=== PATIENT | female | born 1980 | race Caucasian/White ===

== ENCOUNTER 2022-04-28 07:58 | Outpatient (CLI) | payer BC, SELFPAY ==
--- NOTE | 2022-04-28 08:15 | CRLHL7_ITS ---
For Patients: As a result of the Century Cures Act, medical imaging exams and procedure reports are released immediately into your electronic medical record. You may view this report before your referring provider. If you have questions, please contact your health care provider. BILATERAL SCREENING MAMMOGRAM WITH COMPUTER-AIDED DETECTION TECHNIQUE: CC and MLO views were obtained. These mammographic images have been obtained using full-field digital technique. These mammographic images were interpreted with the benefit of computer-aided detection. COMPARISON FILM: Baseline. FINDINGS: The breasts are heterogeneously dense, which may obscure small masses IMPRESSION: There is no radiographic evidence for malignancy. ASSESSMENT: BI-RADS Category 1: Negative RECOMMENDATION: Routine screening mammogram in 1 year. A lay language report of this examination will be provided to the patient. Pedro Luis Rodriguez M.D. Diagnostic Radiologist [email or web address] BAIRON/Dictated by: Pedro Luis Rodriguez MD @ 04/28/2022 10:11:00 AM (Electronically Signed)
== END 2022-04-28 07:59 | disposition home or self-care (01) ==
LOC: MAMMO 08:03
PROVIDERS: PCP Family Medicine; Visit Provider Family Medicine
DX: Z12.31 Encounter for screening mammogram for malignant neoplasm of breast (principal); R92.2 Inconclusive mammogram
CPT/HCPCS: 77063; 77067

== ENCOUNTER 2022-10-31 10:45 | Outpatient (CLI) | payer BC, SELFPAY | END 2022-10-31 10:46 | disposition home or self-care (01) | LOC: NFLDREF 10:45 | PROVIDERS: PCP Family Medicine; Visit Provider Obstetrics & Gynecology | DX: N39.0 Urinary tract infection, site not specified (principal) | CPT/HCPCS: 87086; 87186 ==

== ENCOUNTER 2023-01-30 08:00 | Outpatient (RCR) | payer BC, SELFPAY | END 2023-05-30 23:59 | disposition home or self-care (01) | PROVIDERS: PCP Family Medicine; Visit Provider Obstetrics & Gynecology | DX: R10.2 Pelvic and perineal pain (principal); Z98.890 Other specified postprocedural states; M62.838 Other muscle spasm; R39.14 Feeling of incomplete bladder emptying; N89.8 Other specified noninflammatory disorders of vagina; R27.8 Other lack of coordination; Z51.89 Encounter for other specified aftercare | CPT/HCPCS: 97110; 97112; 97140; 97162; 97535 ==

== ENCOUNTER 2023-09-27 15:59 | Outpatient (CLI) | payer BC, SELFPAY | END 2023-09-27 16:00 | disposition home or self-care (01) | PROVIDERS: PCP Family Medicine; Visit Provider Family Medicine | DX: R20.2 Paresthesia of skin (principal); Z13.220 Encounter for screening for lipoid disorders; Z13.21 Encounter for screening for nutritional disorder; Z13.228 Encounter for screening for other metabolic disorders; Z13.29 Encounter for screening for other suspected endocrine disorder | CPT/HCPCS: 80053; 80061; 82306; 82607; 84443 ==

== ENCOUNTER 2023-11-02 16:45 | Outpatient (RCR) | payer BC, SELFPAY | END 2023-11-07 17:15 | disposition home or self-care (01) | PROVIDERS: PCP Family Medicine; Visit Provider Family Medicine | DX: R20.2 Paresthesia of skin (principal); G56.00 Carpal tunnel syndrome, unspecified upper limb; Z51.89 Encounter for other specified aftercare | CPT/HCPCS: 97033; 97035; 97110; 97140; 97162; 97166 ==

== ENCOUNTER 2023-11-16 06:06 | Day surgery (SDC) | payer BC, SELFPAY ==
[2023-11-16] VITALS (11 sets, daily range): BP systolic 104–137; BP diastolic 51–78; PULSE 70–95; RESP 12–16; TEMP 36.2–36.7; O2SAT 99–100; BMI 21.6
--- OUTSIDE RECORDS SUMMARY | 2023-11-16 06:08 | XMS_ITS | Clinical Summary ---
Author Name Unknown Organization [place] Address [facility]0 [facility] [place] [address] Care Team Providers Care Chief Physical Therapist Name Role Phone Unavailable Primary Care Provider Unavailabl e Allergies Active Allergy Reactions Criticality Noted Date Comments Penicillins Rash Low 09/16/2014 Medications Medication Sig Dispensed Refills Start Date End Date Status Fexofenadine HCl (STEPHY PO) Active Fluticasone Propionate (FLONASE NA) Active ondansetron (ZOFRAN) 4 MG tabletIndications:N ausea TAKE ONE TABLET BY MOUTH EVERY 8 HOURS NEEDED FOR NAUSEA 20 tablet 3 06/14/2018 Active SPRINTEC 28 0.25-35 MG-MCG tablet 08/02/2018 Active fluconazole (DIFLUCAN) 150 MG tabletIndications:Y east infection of the vagina Take 1 tablet today, repeat in 7 days if needed. 2 tablet 06/03/2019 Active Additional Information Patient not taking.Reported on 10/21/2022 SUMAtriptan (IMITREX) 100 MG tablet TAKE ONE TABLET BY MOUTH ONCE A DAY NEEDED FOR MIGRAINE HEADACHES 10/16/2022 Active metoprolol succinate ER (TOPROL XL) 25 MG 24 hr tablet Take 1 tablet by mouth daily at 2 pm 10/16/2022 Active Active Problems Problem Noted Date Diagnosed Date Anxiety 02/07/2018 Liver hemangioma 02/09/2017 Overview: Noted on CT 02/2017, due for follow up US in 6 months (08/2017) H/O tubal ligation 02/07/2017 Atypical squamous cells of u ndetermined significance on cytologic smear of cervix (ASC-US) 01/03/2017 Overview: Overview: 04/02/2015 - had colp in . repeat pap and colp per provider.; 03/08/2016; 08/2016 [place] (ROBINSON 1) PLAN: Cotest in 1year (DUE: 08/2017) CARDIOVASCULAR SCREENING; LDL GOAL LESS THAN 160 03/24/2015 Resolved Problems Problem Noted Date Diagnosed Date Resolved Date Hip pain, left 03/02/2017 05/16/2017 Immunizations Name Administration Dates Next Due Influenza Vaccine >6 months,quad, PF 04/07/2017, 03/30/2016 Family History Medical History Relation Comments Cirrhosis Father Cancer Maternal Grandfather Diabetes Maternal Grandmother Family History Negative Mother Emphysema Paternal Grandfather Peptic Ulcer Disease Paternal Grandfather Cerebrovascular Disease Paternal Grandmother Relation Status Comments Father Maternal Grandfather Maternal Grandmother Mother Paternal Grandfather Paternal Grandmother Social History Tobacco Use Types Packs/Day Years Used Date Smoking Tobacco: Former Cigarettes Smokeless Tobacco: Never Tobacco Cessation:Counseling Given: Not Answered Alcohol Use Standard Drinks/Week Comments Yes 0 (1 standard drink = 0.6 oz pur e alcohol) Occ. Rare PHQ-2 Answer Date Recorded PHQ-2 Score 0 09/18/2018 Adolescent Education Answer Date Record ed Getting School Help Needed Not on file 03/31 Sex and Gender Information Value Date Recorded Sex Assigned at Not on file Gender Identity Not on file Sexual Orientation Not on file Last Filed Vital Signs Vital Sign Reading Time Taken Comments Blood Pressure 112/75 10/21/2022 12:03 PM CDT Pulse 91 10/21/2022 12:03 PM CDT Temperature 36.8 ??C (98.3 ??F) 10/21/2022 1 2:03 PM CDT Respiratory Rate 16 03/21/2021 3:49 PM CDT Oxygen Saturation 100% 10/21/2022 12: 03 PM CDT Inhaled Oxygen Concentration - - Weight 64.3 kg (141 lb 11.2 oz) 03/21/2021 3:49 PM CDT Height 165.1 cm (5' 5) 09/18/2018 9:26 AM CDT Body Mass Index 23.58 09/18/2018 9:26 AM CDT Plan of Treatment Health Maintenance Due Date Last Done Comments ADVANCE CARE PLANNING 1981 ANNUAL REVIEW OF HM ORDERS 1981 MAMMO SCREENING 1981 HIV SCREENING 1996 HEPATITIS C SCREENING 1999 HEPATITIS B IMMUNIZATION (1 of 3 - 19+ 3-dose series) 2000 YEARLY PREVENTIVE VISIT 09/19/2019 09/18/2018 HPV TEST 09/28/2020 09/28/2017, 09/08, 09/28/2017, Additional history exists PAP 09/28/2020 09/28/2017, 09/08, 09/28/2017, Additional history exists COVID-19 Vaccine ( season) 2023 05/06/2022, 10/09/2020, 09/11/2020 PHQ-2 (once per calendar year) 2023 09/18/2018, 08/21/2018, 02/07/2018, Additional history exists LIPID 09/19/2023 09/18/2018 INFLUENZA VACCINE (Season Ended) 2024 05/06/2022, 04/30/2021, 05/07/2020, Additional history exists GLUCOSE 03/21/2024 03/21/2021, 09/07, 02/07/2017 DTAP/TDAP/TD IMMUNIZATION (2 - Td or Tdap) 12/16/2025 12/17/2015 HPV IMMUNIZATION Aged Out No longer e ligible based on patient's age to complete this topic IPV IMMUNIZATION Aged Out No longer e ligible based on patient's age to complete this topic MENINGITIS IMMUNIZATION Aged Out No l onger eligible based on patient's age to complete this topic Pneumococcal Vaccine: Pediatrics (0 to 5 Years) and At-Risk Patients (6 to 64 Years) Aged Out No longer eligible based on patient's age to complete this topic RSV MONOCLONAL ANTIBODY Aged Out No l onger eligible based on patient's age to complete this topic Procedures Procedure Name Priority Date/Time Associated Diagnosis Comments BASIC METABOLIC PANEL ANABEL 03/21/2021 4:20 PM CDT RLQ abdominal pain LIPID REFLEX TO DIRECT LDL PANEL Routine 09/18/2018 9:54 AM CDT Routine [facility] ABSTRACT PAP (HIM EXTERNAL RESULT) Routine 09/28/2017 ABSTRACT HPV (HIM EXTERNAL RESULT) Routine 09/28/2017 from Last 3 Months or Most Recently Relevant to Health Maintenance Results * Basic metabolic panel (Ca, Cl, CO2, Creat, Gluc, K, Na, BUN) (03/21/2021 4:20 PM CDT) Sodium 134 133 - 144 mmol/L 03/22/2021 9:12 PM CDT [facility] Potassium 4.4 3.4 - 5.3 mmol/L 03/22/2021 9:12 PM CDT [facility] Chloride 101 94 - 109 mmol/L 03/22/2021 9:12 PM CDT [facility] Carbon Dioxide (CO2) 29 20 - 32 mmol/L 03/22/2021 9:12 PM CDT [facility] Anion Gap 4 3 - 14 mmol/L 03/22/2021 9:12 PM CDT [facility] Urea Nitrogen 18 7 - 30 mg/dL 03/22/2021 9:12 PM CDT [facility] Creatinine 0.60 0.52 - 1.04 mg/dL 03/22/2021 9:12 PM CDT [facility] Calcium 9.7 8.5 - 10.1 mg/dL 03/22/2021 9:12 PM CDT [facility] Glucose 88 70 - 99 mg/dL 03/22/2021 9:12 PM CDT [facility] GFR Estimate >90 >60 mL/min/1.7 3m2 03/22/2021 9:12 PM CDT [facility] Comment:As of January 17, 2021, eGFR is calculated by the CKD-EPI creatinine equation, without race adjustment. eGFR can be influenced by muscle mass, exercise, and diet. The reported eGFR is an estimation only and is only applicable if the renal function is stable. Blood STRUCTURE OF RIGHT UPPER LIMB / Unknown Venipuncture / Unknown 03/21/2021 4:20 PM CDT 03/21/2021 4:21 PM CDT Rodriguez Aparicio PA-C LAB - BLOOD ORDERABL ES [facility] [address] Lab (no room number, 1st floor of clinic) [place] [address], [facility] [phone] * (ABNORMAL) Lipid panel reflex to direct LDL Fasting (09/18/2018 9:54 AM CDT) Cholesterol 188 <200 mg/dL 09/18/2018 3:31 PM CDT [facility] Triglycerides 174(H) <150 mg/dL 09/18/2018 3:31 PM CDT [facility] Comment: Borderline high: ??150-199 mg/dl High: ? 200-499 mg/dl Very high: ? >499 mg/dl Fasting specimen HDL Cholesterol 48(L) >49 mg/dL 9 3:31 PM CDT [facility] LDL Cholesterol Calculated 105(H) <100 mg/dL 09/18/2018 3:31 PM CDT [facility] Comment: Above desirable: ??100-129 mg/dl Borderline High: ??130-159 mg/dL High: ? 160-189 mg/dL Very high: ? >189 mg/dl Non HDL Cholesterol 140(H) <130 mg/dL 09/18/2018 3:31 PM CDT [facility] Comment: Above Desirable: ??130-159 mg/dl Borderline high: ??160-189 mg/dl High: ? 190-219 mg/dl Very high: ? >219 mg/dl Blood specimen (specimen) 09/18/2018 9:54 AM CDT 09/18/2018 9:55 AM CDT Bianka Yanes APRN JOGGLE PRESS OPERATOR LAB - BLOOD ORDERABLES [facility] [address] [address], [facility] [phone] * ABSTRACT HPV-NO CHARGE (09/28/2017) HPV Abstract See Scanned Document [facility] 09/28/2017 Narrative [facility] LAB-CENTRAL LABORATORY - 09/28/2017 RESULTS FOUND IN CARE EVERYWHERE Amelia Yadav CMA ??P Abstract Quality Initiatives Please abstract the following data from this visit with this patient into the appropriate field in Epic: Pap smear done on this date: 09/28/2017 (approximately), by this group: [place], results were normal. Provider Outside LAB - [facility] EXTERNAL R ESULT Performing Organization Address [facility] Co de Phone Number [facility] LAB-CENTRAL LABORATORY [address] * ABSTRACT PAP-NO CHARGE (09/28/2017) PAP-ABSTRACT See Scanned Document [facility]-C[facility]AL [facility] 09/28/2017 Narrative [facility] - 09/28/2017 RESULTS FOUND IN CARE EVERYWHERE Amelia Yadav FRACTIONATION PLANT SUPERVISOR ??P Abstract Quality Initiatives Please abstract the following data from this visit with this patient into the appropriate field in Epic: Pap smear done on this date: 09/28/2017 (approximately), by this group: [place], results were normal. Provider Outside LAB - [facility] EXTERNAL R [employer] Performing Organization Address [facility] Co de Phone Number [facility] LAB-CENTRAL LABORATORY [address] from Last 3 Months or Most Recently Relevant to Health Maintenance [address] [place] [address]
--- OUTSIDE RECORDS SUMMARY | 2023-11-16 06:08 | XMS_ITS | Encounter Summary ---
Author Name Unknown Organization [place] Address formerly [facility]0 [facility] [place] [address] Care Team Providers Care Pond Tender Name Role Phone Bianka Yanes APRN, CNP Primary Care Provi margo Unavailable Bianka Yanes APRN, CNP Unavailable Un available Encounter Details Date Type Department Care Team (Late st Contact Info) Description 11/15/2018 [facility] [address] [place] [id number] [facility] Social History Tobacco Use Types Packs/Day Years Used Date Smoking Tobacco: Former Cigarettes Smokeless Tobacco: Never Alcohol Use Standard Drinks/Week Comments Yes 0 (1 standard drink = 0.6 oz pur e alcohol) Occ. Rare PHQ-2 Answer Date Recorded PHQ-2 Score 0 09/18/2018 Sex and Gender Information Value Date Recorded Sex Assigned at Not on file Gender Identity Not on file Sexual Orientation Not on file documented as of this encounter Plan of Treatment Not on file documented as of this encounter Visit Diagnoses Not on filedocumented in this encounter Additional Health Concerns Assessment Noted Time PHQ-9 Depression Total Score: 1 02/08/20 18 2:44 PM CDT documented as of this encounter Care Teams Pond Tender Relationship Specialty Start Date End Date Bianka Yanes APRN CNP PCP - General Nurse Practitioner 01/03/17 06/15/23 Bianka Yanes APRN CNP Assigned PCP 01/08/17 09/18/21 documented as of this encounter
--- OUTSIDE RECORDS SUMMARY | 2023-11-16 06:08 | XMS_ITS | Encounter Summary ---
Author Name Unknown Organization [place] Address [facility]0 [place] [address] Care Team Providers Care Od Grinder Operator Name Role Phone Bianka Yanes APRN, CNP Primary Care Provi margo Unavailable Bianka Yanes APRN, CNP Unavailable Un available Bianka Yanes APRN, CNP Unavailable Un available Encounter Details Date Type Department Care Team (Late st Contact Info) Description 05/18/2015 [facility] [address] [phone] Alicia Cornejo MA Social History Tobacco Use Types Packs/Day Years Used Date Smoking Tobacco: Former Cigarettes Alcohol Use Standard Drinks/Week Comments Yes 0 (1 standard drink = 0.6 oz pur e alcohol) Occ. Rare Sex and Gender Information Value Date Recorded Sex Assigned at Not on file Gender Identity Not on file Sexual Orientation Not on file documented as of this encounter Plan of Treatment Not on file documented as of this encounter Visit Diagnoses Not on filedocumented in this encounter Care Teams Od Grinder Operator Relationship Specialty Start Date End Date Bianka Yanes APRN CNP PCP - General Nurse Practitioner 01/03/17 06/15/23 Bianka Yanes APRN CNP PCP - Assigned PCP 01/08/17 09/11/18 Bianka Yanes APRN CNP Assigned PCP 01/08/17 09/18/21 documented as of this encounter
--- OUTSIDE RECORDS SUMMARY | 2023-11-16 06:08 | XMS_ITS | Referral Summary ---
Author Name Unknown Organization [place] Address [facility]0 [facility] [place] [address] Care Team Providers Care Barge Loader Name Role Phone Unavailable Primary Care Provider [...] pap and colp per provider.; 03/08/2016; 08/2016 [place] (ROBINSON 1) PLAN: Cotest in 1year (DUE: 08/2017) CARDIOVASCULAR SCREENING; LDL GOAL LESS THAN 160 03/24/2015 Resolved Problems Problem Noted Date Diagnosed Date Resolved Date Hip pain, left 03/02/2017 05/16/2017 Immunizations Name Administration Dates Next Due Influenza Vaccine >6 months,quad, PF 04/07/2017, 03/30/2016 Social History Tobacco Use Types Packs/Day Years [...] 09/18/2018 9:26 AM CDT Plan of Treatment Not on file Procedures Procedure Name Priority Date/Time Associated Diagnosis Comments BASIC METABOLIC PANEL ANABEL 03/21/2021 4:20 PM CDT RLQ abdominal pain LIPID REFLEX TO DIRECT LDL PANEL Routine 09/18/2018 9:54 AM CDT Routine general medical examination at a health care facility ABSTRACT PAP (HIM EXTERNAL RESULT) [...] LAB - BLOOD ORDERABL ES [facility] [address] Lab (no room number, 1st floor of clinic) [place] [address], [place] [phone] * (ABNORMAL) Lipid panel reflex to direct LDL Fasting (09/18/2018 9:54 AM CDT) [facility] Cholesterol 188 <200 mg/dL 09/18/2018 3:31 PM CDT [facility] Triglycerides 174(H) <150 mg/dL 09/18/2018 3:31 PM CDT [facility] Comment: Borderline high: ??150-199 mg/dl High: ? 200-499 mg/dl Very high: ? >499 mg/dl Fasting specimen HDL Cholesterol 48(L) >49 mg/dL 9 3:31 PM T [facility] LDL Cholesterol Calculated 105(H) <100 mg/dL 09/18/2018 3:31 PM T [facility] Comment: Above desirable: ??100-129 mg/dl Borderline High: ??130-159 mg/dL High: ? 160-189 mg/dL Very high: ? >189 mg/dl Non HDL Cholesterol 140(H) <130 mg/dL 09/18/2018 3:31 PM T [facility] Comment: Above Desirable: ??130-159 mg/dl Borderline high: ??160-189 mg/dl High: ? 190-219 mg/dl Very high: ? >219 mg/dl Blood specimen (specimen) 09/18/2018 9:54 AM CDT 09/18/2018 9:55 AM CDT Bianka Yanes APRN POWER PLANT OPERATIONS MANAGER LAB - BLOOD ORDERABLES [facility] [address] [address], [place] [phone] * ABSTRACT HPV-NO CHARGE (09/28/2017) Pathologist [facility] HPV Abstract See Scanned Document [facility] LAB-CENTRAL LABORATORY 09/28/2017 Narrative [facility] LAB-C[facility]AL LABORATORY - 09/28/2017 RESULTS FOUND IN CARE EVERYWHERE Amelia Yadav ISOTOPE TECHNICIAN ??P Abstract Quality Initiatives Please abstract the following data from this visit with this patient into the appropriate field in Epic: Pap smear done on this date: 09/28/2017 (approximately), by this group: [place], results were normal. Provider Outside LAB - [facility] EXTERNAL R ESULT Performing Organization Address [facility]/ZIP Co de Phone Number [facility] LAB-CENTRAL LABORATORY [address] * ABSTRACT PAP-NO CHARGE (09/28/2017) PAP-ABSTRACT See Scanned Document [facility]-C[facility]AL LAB[facility]ATORY 09/28/2017 Narrative [facility]-C[facility]AL LAB[facility]ATORY - 09/28/2017 RESULTS FOUND IN CARE EVERYWHERE Amelia Yadav ISOTOPE TECHNICIAN ??P Abstract Quality Initiatives Please abstract the following data from this visit with this patient into the appropriate field in Epic: Pap smear done on this date: 09/28/2017 (approximately), by this group: [place], results were normal. Provider Outside LAB - [facility] EXTERNAL R DrawQuestULT Performing Organization Address [facility] Co de Phone Number [facility] LAB-CENTRAL LABORATORY [address] from Last 3 Months or Most Recently Relevant to Health Maintenance [address] [place] [address]
--- OUTSIDE RECORDS SUMMARY | 2023-11-16 06:09 | XMS_ITS | Continuity of Care Document ---
Author Name [facility] Organization [facility] Care Team Providers Care Comb Fixer Name Role Phone [facility] Unavailable Unavailable Problems Combined list of problems from Department of Defense and Veterans [facility] facilities. It does not include entries that were removed or entered in error. Problem Status Onset Date Problem Type Date of Resolution Comments Source Laboratory Studies Inactive Condition Do D feeling tired or poorly Active Condition [facility] astigmatism regular Active Condition Do D refractive error - myopia Active Condition [facility] routine ophthalmological exam Inactive Condition Do[facility] anemia Active Condition [facility] dermatitis Inactive Condition [facility] Parent Education: Active Condition DoD Inactive Condition [facility] Test Positive Inactive Condition DoD earache Inactive Condition [facility] Allergies, Adverse Reactions, Alerts Combined list of allergies from Department of Defense and Veterans Affairs facilities. It does not include entries that were removed or entered in error. Substance Category Reaction Severity Reaction type Status Date Reported Comments Source PENICILLINS {Cla } Drug allergy (disorder) Rash active 05/27/[address] [facility] Encounters Combined list of: 1) Encounters from Department of Veterans Affairs facilities going back up to thelast 18 months. 2) Encounters from the Department of Defense facilities going back up to 280 months. Location Location Details Encounter Type Encounter Number Reason For Visit Attending Provider ADM Date DC Date Status Disposition Source [facility] [address] [facility] Team B) OUTPATIENT [id number] pt states ear infecti on, painful TONNY GREEN N 05/27 Released w/o Limitations [facility] [address] [facility] Team B) Agusto [address] [facility](Signal Person ) OUTPATIENT [id number] walk in pregnan cy test AVANI MULLINS 06/29 Released w/o Limitations [facility] [address] [facility](G yn) Agusto [address] [facility] olguero) OUTPATIENT [id number] BRANDON Purdy 12/05 Released w/o Limitations [facility] [address] [facility] [address] [facility]) TELE CONSULT [id number] Notes Entered by: PATRICE LEE 06 Dec 2011 1354 ------- ------- ------- ------- -- Lab results JADYN CALDERON 12/[address] [facility]) [address] [facility]) TELE CONSULT [id number] Notes Entered by: FROILAN BROWN 18 Jan 2012 1533 ------- ------- ------- ------- -- Need New OBGYN DANNY Red 01/[address] [facility]) [address](Opt ometry Clinic) OUTPATIENT [id number] REE + ALICIA Agee 04/05 Released w/o Limitations [address](O ptometr y Clinic) [address]([facility] Team B) OUTPATIENT [id number] Anemia during pregnan cy (still having same Sxs) DORIS GALLO 06/26 Released w/o Limitations [address] Medical [facility]( amily Medicin e Clinic Team B) [address] Medical [facility] Team B) TELE CONSULT [id number] Notes Entered by: DAYO HORNE 04 Jul 2012 1227 ------- ------- ------- ------- -- Lab results RERE ALVAREZ 07/[address]( amily Medicin e Clinic Team B) Procedures Combined list of: 1) Procedures from Department of Veterans Affairs facilities going back up to thelast 18 months, not all VA non-surgical procedures are included; 2) All procedures from the Department of Defense facilities. Procedure Procedure Type Code Date Perfomer Comments Sourc e Prescription And Fitting Bilateral Corneal Lenses (Not For Aphakia) Prescription And Fitting Bilateral Corneal Lenses (Not For Aphakia) 83544 2 ALICIA DUARTE [facility] Determination Of Refractive State Determination Of Refractive State 90032 2 ALICIA DUARTE Ophthalmological New Patient Start Comprehensive Care Ophthalmological New Patient Start Comprehensive Care 79514 2 ALICIA DUARTE OPHTHALMOLOGICAL SERVICES: MEDICAL EXAMINATION AND EVALUATION WITH INITIATION OF DIAGNOSTIC AND TREATMENT PROGRAM; COMPREHENSIVE, NEW PATIENT, 1 OR MORE VISITS 2 [facility] Social History Combined list of available smoking, tobacco, and other social history from Department of Defense and Veterans Affairs facilities. Social History Type Response Date Comment Laura wahl This section is an empty social history section. [employer]
--- NOTE | 2023-11-16 08:01 | P.ORPRC_ITS ---
Procedure Note Date of procedure: 11/16/23 Procedure: Preop diagnosis: Right upper extremity carpal tunnel syndrome Postop diagnosis: Right upper extremity carpal tunnel syndrome Procedure: Right upper extremity carpal tunnel release Anesthesia: Local Surgeon: Jayson Wiseman MD commercial lending assistant: JAMIE Medina EBL: 5 mL Complications: None Specimens: None Drains: None Indications: The patient has a history of right upper extremity carpal tunnel syndrome sympto ms. Despite appropriate nonoperative management consisting of nighttime bracing and occupational therapy they continue to have symptoms. Operative intervention was recommended. The risks, benefits alternatives and expected outcomes were discussed in detail. These included but were not limited to: Infection, bleeding, injury to blood vessel or nerve, venous thromboembolism. All questions were answered to their satisfaction. The patient was placed supine on the operating room table. Local anesthesia was established with 0.5% Marcaine with epinephrine and 2% lidocaine with epinephrine. The hand was prepped and draped in usual sterile fashion. A longitudinal incision was made centered over the radial border of the ring finger at the base of the palm. Subcutaneous dissection was sharply taken through the palmar fascia and the palmaris brevis to the transverse carpal ligament. The ligament was divided in line with the incision. Proximal and distal dissection was carried with tenotomy and Metzenbaum scissors for a wide decompression of the carpal tunnel. The tourniquet was released, bleeding was controlled with direct pressure. The wound was closed with a 3-0 nylon. A bulky dry dressing was applied, sponge and needle counts were correct x 2. The patient tolerated the procedure well, there were no apparent complications. They were sent to same day surgery in satisfactory condition. Plan: Use of the hand as tolerates. Discontinue the intraoperative dressing on postoperative day 3 and may get the wound wet as tolerates. Follow up in the office in 2 weeks for a wound check and suture removal.
== END 2023-11-16 08:25 | disposition home or self-care (01) ==
LOC: OR 06:07
PROVIDERS: PCP Family Medicine; Visit Provider Orthopaedic Surgery
PROC: (CPT 64721; principal; 2023-11-16 07:15)
DX: G56.01 Carpal tunnel syndrome, right upper limb (principal)
CPT/HCPCS: 64721

== ENCOUNTER 2023-12-11 17:12 | Outpatient (CLI) | payer BC, SELFPAY ==
--- OUTSIDE RECORDS SUMMARY | 2023-12-11 17:14 | XMS_ITS | Clinical Summary ---
Author Organization [place] Address [facility]0 [facility] [place] [address] Care Team Providers Care Embossing Press Operator Apprentice Name Role Phone Unavailable Primary Care Provider [...] pap and colp per provider.; 03/08/2016; 08/2016 [place] (ROBINSON 1) PLAN: Cotest in 1year (DUE: [...] VISIT 09/19/2019 09/18/2018 HPV TEST 09/28/2020 09/28/2017, 09/28/2017 PAP 09/28/2020 09/28/2017, 09/08, 09/28/2017, Additional history [...] CDT Routine general medical examination at a [facility] care facility ABSTRACT PAP (HIM EXTERNAL RESULT) [...] LAB - BLOOD ORDERABL ES OX LABORATORY [facility] [address] Lab (no room number, 1st floor of clinic) [place] [address], [facility] [phone] * (ABNORMAL) Lipid panel reflex to direct LDL Fasting (09/18/2018 9:54 AM CDT) Cholesterol 188 <200 mg/dL 09/18/2018 3:31 PM CDT [facility] Triglycerides 174(H) <150 mg/dL 09/18/2018 3:31 PM CDT [facility] Comment: Borderline high: ??150-199 mg/dl High: ? 200-499 mg/dl Very high: ? >499 mg/dl Fasting specimen HDL Cholesterol 48(L) >49 mg/dL 9 3:31 PM CDT [facility] LDL Cholesterol Calculated 105(H) <100 mg/dL 09/18/2018 3:31 PM CDT [facility] Comment: Above desirable: ??100-129 mg/dl Borderline High: ??130-159 mg/dL High: ? 160-189 mg/dL Very high: ? >189 mg/dl Non HDL Cholesterol 140(H) <130 mg/dL 09/18/2018 3:31 PM CDT [facility] Comment: Above Desirable: ??130-159 mg/dl Borderline high: ??160-189 mg/dl High: ? 190-219 mg/dl Very high: ? >219 mg/dl Blood specimen (specimen) 09/18/2018 9:54 AM CDT 09/18/2018 9:55 AM CDT Bianka Yanes APRN DAIRY INSPECTOR LAB - BLOOD ORDERABLES [facility] [address] [address], [facility] [phone] * ABSTRACT HPV-NO CHARGE (09/28/2017) HPV Abstract See Scanned Document [facility] LAB-CENTRAL LABORATORY 09/28/2017 Narrative [facility] LAB-CENTRAL LABORATORY - 09/28/2017 RESULTS FOUND IN CARE EVERYWHERE Amelia Yadav NAIL ARTIST ??P Abstract Quality Initiatives Please abstract the following data from this visit with this patient into the appropriate field in Epic: Pap smear done on this date: 09/28/2017 (approximately), by this group: [place]abas, results were normal. Provider Outside LAB - HIM EXTERNAL R LuristicULT Performing Organization Address City/[facility]/ZIP Co de Phone Number [facility] LAB-CENTRAL LABORATORY [address] * ABSTRACT PAP-NO CHARGE (09/28/2017) PAP-ABSTRACT See Scanned Document [facility] LAB-CENTRAL LABORATORY 09/28/2017 Narrative [facility] LAB-CENTRAL LABORATORY - 09/28/2017 RESULTS FOUND IN CARE EVERYWHERE Amelia Yadav NAIL ARTIST ??P Abstract Quality Initiatives Please abstract the following data from this visit with this patient into the appropriate field in Epic: Pap smear done on this date: 09/28/2017 (approximately), by this group: [place], results were normal. Provider Outside LAB - HIM EXTERNAL R Danger Performing Organization Address [facility] Co de Phone Number [facility]-CENTRAL LABORATORY [address] from Last 3 Months or Most Recently Relevant to Health Maintenance
--- OUTSIDE RECORDS SUMMARY | 2023-12-11 17:15 | XMS_ITS | Continuity of Care Document ---
Author Name [facility] Organization [facility] Care Team Providers Care Distribution A Class Lineman Name Role Phone [facility] Unavailable Unavailable Problems Combined list of problems from Department of Defense and Veterans [facility] facilities. It does not include entries that were removed or entered in error. Problem Status Onset Date Problem Type Date of Resolution Comments Source Laboratory Studies Inactive Condition Do D feeling tired or poorly Active Condition [facility] astigmatism regular Active Condition Do D refractive error - myopia Active Condition [facility] routine ophthalmological exam Inactive Condition DoD anemia Active Condition DoD dermatitis Inactive Condition [facility] Parent Education: Active Condition DoD Inactive Condition [facility] Test Positive Inactive Condition DoD earache Inactive Condition DoD Allergies, Adverse Reactions, Alerts Combined list of allergies from Department of Defense and Veterans Affairs facilities. It does not include entries that were removed or entered in error. Substance Category Reaction Severity Reaction type Status Date Reported Comments Source PENICILLINS {Cla } Drug allergy (disorder) Rash active 05/27/[address] [facility] Encounters Combined list of: 1) Encounters from Department of Veterans Affairs facilities going back up to thelast 18 months. 2) Encounters from the Department of Defense facilities going back up to 280 months. Location Location Details Encounter Type Encounter Number Reason For Visit Attending Provider ADM Date DC Date Status Disposition Source [facility] [address] [facility] B) OUTPATIENT [id number] pt states ear infecti on, painful TONNY GREEN N 05/27 Released w/o Limitations [facility] [address] [facility](F amil Medicin e Clinic Team B) [facility]ust[facility] [address] [facility](Can Vacuum Tester ) OUTPATIENT [id number] walk in pregnan cy test AVANI MULLINS 06/29 Released w/o Limitations [facility] [address] [facility](G yn) Agusto [address] [facility] olguero) OUTPATIENT [id number] BRANDON Purdy 12/05 Released w/o Limitations [facility] [address] [facility] [address] [facility]) TELE CONSULT [id number] Notes Entered by: PATRICE LEE 06 Dec 2011 1354 ------- ------- ------- ------- -- Lab results JADYN CALDERON 12/[address] [facility]) [address] [facility]) TELE CONSULT [id number] Notes Entered by: FROILAN BROWN 18 Jan 2012 1533 ------- ------- ------- ------- -- Need New OBGYDANNY Chavez 01/[address] [facility]) [address](Opt ometry Clinic) OUTPATIENT [id number] REE + ALICIA Agee 04/05 Released w/o Limitations [address] Group(O ptometr y Clinic) [address]([facility] B) OUTPATIENT [id number] Anemia during pregnan cy (still having same Sxs) DORIS GALLO 06/26 Released w/o Limitations [address] [facility] Medicin e Clinic Team B) [address] [facility] Team B) TELE CONSULT [id number] Notes Entered by: DAYO HORNE 04 Jul 2012 1227 ------- ------- ------- ------- -- Lab results RERE ALVAREZ 07/[address]([facility] Medicin e Clinic Team B) Procedures Combined list of: 1) Procedures from Department of Veterans Affairs facilities going back up to thelast 18 months, not all VA non-surgical procedures are included; 2) All procedures from the Department of Defense facilities. Procedure Procedure Type Code Date Perfomer Comments Sour e OPHTHALMOLOGICAL SERVICES: MEDICAL EXAMINATION AND EVALUATION WITH INITIATION OF DIAGNOSTIC AND TREATMENT PROGRAM; COMPREHENSIVE, NEW PATIENT, 1 OR MORE VISITS 2 [facility] Prescription And Fitting Bilateral Corneal Lenses (Not For Aphakia) Prescription And Fitting Bilateral Corneal Lenses (Not For Aphakia) 17009 2 ALICIA DUARTE Determination Of Refractive State Determination Of Refractive State 63460 2 ALICIA DUARTE Ophthalmological New Patient Start Comprehensive Care Ophthalmological New Patient Start Comprehensive Care 35536 2 ALICIA DUARTE Social History Combined list of available smoking, tobacco, and other social history from Department of Defense and Veterans Affairs facilities. Social History Type Response Date Comment Laura wahl This section is an empty social history section. DoD
--- OUTSIDE RECORDS SUMMARY | 2023-12-11 17:15 | XMS_ITS | Referral Summary ---
Author Organization [place] Address [facility] [place] [address] Care Team Providers Care Footwear Machinery Instructor Name Role Phone Unavailable Primary Care Provider [...] pap and colp per provider.; 03/08/2016; 08/2016 [place] (ROBINSON 1) PLAN: Cotest in 1year (DUE: [...] LAB - BLOOD ORDERABL ES OX LABORATORY [facility] Lab [address] Lab (no room number, 1st floor of clinic) [place] [address], [place] [phone] * (ABNORMAL) Lipid panel reflex to direct LDL Fasting (09/18/2018 9:54 AM CDT) Pathologist [facility] Cholesterol 188 <200 mg/dL 09/18/2018 3:31 PM CDT [facility] Triglycerides 174(H) <150 mg/dL 09/18/2018 3:31 PM T [facility] Comment: Borderline high: ??150-199 mg/dl High: ? 200-499 mg/dl Very high: ? >499 mg/dl Fasting specimen HDL Cholesterol 48(L) >49 mg/dL 9 3:31 PM T [facility] LDL Cholesterol Calculated 105(H) <100 mg/dL 09/18/2018 3:31 PM T [facility] Comment: Above desirable: ??100-129 mg/dl Borderline High: ??130-159 mg/dL High: ? 160-189 mg/dL Very high: ? >189 mg/dl Non HDL Cholesterol 140(H) <130 mg/dL 09/18/2018 3:31 PM T [facility] Comment: Above Desirable: ??130-159 mg/dl Borderline high: ??160-189 mg/dl High: ? 190-219 mg/dl Very high: ? >219 mg/dl Blood specimen (specimen) 09/18/2018 9:54 AM CDT 09/18/2018 9:55 AM CDT Bianka Yanes APRN PARACHUTE MARKER LAB - BLOOD ORDERABLES [facility] [address] [place] [address], [place] [phone] * ABSTRACT HPV-NO CHARGE (09/28/2017) HPV Abstract See Scanned Document [employer] LAB-CENTRAL LABORATORY 09/28/2017 Narrative [facility] [employer] LAB-CENTRAL LABORATORY - 09/28/2017 RESULTS FOUND IN CARE EVERYWHERE Amelia Yadav CMA ??P Abstract Quality Initiatives Please abstract the following data from this visit with this patient into the appropriate field in Epic: Pap smear done on this date: 09/28/2017 (approximately), by this group: [place], results were normal. Provider Outside LAB - HIM EXTERNAL R ESULT [facility] [employer] LAB-CENTRAL LABORATORY [address] * ABSTRACT PAP-NO CHARGE (09/28/2017) PAP-ABSTRACT See Scanned Document [facility] [employer] LAB-CENTRAL LABORATORY 09/28/2017 Narrative [facility] LAB-CENTRAL LABORATORY - 09/28/2017 RESULTS FOUND IN CARE EVERYWHERE Amelia Yadav TENNIS PROFESSIONAL ??P Abstract Quality Initiatives Please abstract the following data from this visit with this patient into the appropriate field in Epic: Pap smear done on this date: 09/28/2017 (approximately), by this group: [place], results were normal. Provider Outside LAB - [facility] EXTERNAL R Element WorksULT Performing Organization Address [facility]/ZIP Co de Phone Number [facility] [employer] LAB-CENTRAL LABORATORY [address] from Last 3 Months or Most Recently Relevant to Health Maintenance [address] [place] [address]
--- OUTSIDE RECORDS SUMMARY | 2023-12-11 17:15 | XMS_ITS | Encounter Summary ---
Author Organization [place] Address [facility] [place] [address] Care Team Providers Care Furnace Feeder Name Role Phone Bianka Yanes APRN, CNP Primary Care Provi margo Unavailable Bianka Yanes APRN, CNP Unavailable Un available Encounter Details Date Type Department Care Team (Late st Contact Info) Description 11/15/2018 [facility] [address] [place] [address] [facility] Social History Tobacco Use Types Packs/Day Years [...] documented as of this encounter Care Teams Furnace Feeder Relationship Specialty Start Date End Date Bianka Yanes APRN CNP PCP - General Nurse Practitioner 01/03/17 06/15/23 Bianka Yanes APRN CNP Assigned PCP 01/08/17 09/18/21 documented as of this encounter
--- OUTSIDE RECORDS SUMMARY | 2023-12-11 17:15 | XMS_ITS | Encounter Summary ---
Author Organization [place] Address [facility]0 [facility] [place] [address] Care Team Providers Care Butadiene Converter Helper Name Role Phone Bianka Yanes APRN, CNP Primary Care Provi margo Unavailable Bianka Yanes APRN, CNP Unavailable Un available Bianka Yanes APRN, CNP Unavailable Un available Encounter Details Date Type Department Care Team (Late st Contact Info) Description 05/18/2015 [facility] Medical Advice [address] [address] Aliica Cornejo MA Social History Tobacco Use Types [...] on filedocumented in this encounter Care Teams Butadiene Converter Helper Relationship Specialty Start Date End Date Bianka Yanes APRN CNP PCP - General Nurse Practitioner 01/03/17 06/15/23 Bianka Yanes APRN CNP PCP - Assigned PCP 01/08/17 09/11/18 Bianka Yanes APRN CNP Assigned PCP 01/08/17 09/18/21 documented as of this encounter
--- NOTE | 2023-12-11 17:30 | CRLHL7_ITS ---
For Patients: As a result of the Century Cures Act, medical imaging exams and procedure reports are released immediately into your electronic medical record. You may view this report before your referring provider. If you have questions, please contact your health care provider. INDICATION : Mononeuropathy of bilateral upper limbs. TECHNIQUE : Cervical spine MRI without contrast. COMPARISON: COMPARISONCervical spine radiographs from 04/14/2023. FINDINGS: Straightening of the typical cervical lordosis. No recent compression fracture or marrow replacing process. Posterior fossa structures are normal. Cervical cord signal is normal. No extraspinal soft tissue abnormalities. Discs/Endplates: Normal cervical and upper thoracic disc height and signal. Findings at individual levels as follows: Craniocervical junction: Alignment is maintained. C2-C3: No spinal canal or neural foraminal stenosis. C3-C4: No spinal canal or neural foraminal stenosis. C4-C5: No spinal canal or neural foraminal stenosis. C5-C6: A tiny central protrusion. No spinal canal or neural foraminal stenosis. C6-C7: A tiny central protrusion. No spinal canal or neural foraminal stenosis. C7-T1: A tiny central protrusion. No spinal canal or neural foraminal stenosis. Imaged upper thoracic levels: No spinal canal or neural foraminal stenosis. IMPRESSION: 1. Minimal cervical spondylosis without significant spinal canal/neural foraminal stenosis or impingement of neural structures. 2. Cord signal is normal. No extradural pathology. Dictated by Master Hunt MD @ 12/12/2023 11:48:55 AM (Electronically Signed)
== END 2023-12-11 17:13 | disposition home or self-care (01) ==
LOC: MRI 17:13
PROVIDERS: PCP Family Medicine; Visit Provider Family Medicine
DX: G56.93 Unspecified mononeuropathy of bilateral upper limbs (principal); M47.892 Other spondylosis, cervical region
CPT/HCPCS: 72141

== ENCOUNTER 2023-12-19 13:44 | Outpatient (CLI) | payer BC, SELFPAY ==
--- OUTSIDE RECORDS SUMMARY | 2023-12-19 13:46 | XMS_ITS | Encounter Summary ---
Author Organization [place] Address [facility] [address] Care Team Providers Care Shark Biologist Name Role Phone Bianka Yanes APRN, CNP Primary Care Provi margo Unavailable Bianka Yanes APRN, CNP Unavailable Un available Encounter Details Date Type Department Care Team (Late st Contact Info) Description 11/15/2018 [facility] [address] [place] [address] [facility] Social History Tobacco Use Types [...] documented as of this encounter Care Teams Shark Biologist Relationship Specialty Start Date End Date Bianka Yanes APRN CNP PCP - General Nurse Practitioner 01/03/17 06/15/23 Bianka Yanes APRN CNP Assigned PCP 01/08/17 09/18/21 documented as of this encounter
--- OUTSIDE RECORDS SUMMARY | 2023-12-19 13:46 | XMS_ITS | Encounter Summary ---
Author Organization [place] Address [facility] [place] [address] Care Team Providers Care Railway Station Manager Name Role Phone Bianka Yanes APRN, CNP Primary Care Provi margo Unavailable Bianka Yanes APRN, CNP Unavailable Un available Bianka Yanes APRN, CNP Unavailable Un available Encounter Details Date Type Department Care Team (Late st Contact Info) Description 05/18/2015 [facility] Medical Advice [address] [address] Alicia Cornejo MA Social History [...] on filedocumented in this encounter Care Teams Railway Station Manager Relationship Specialty Start Date End Date Bianka Yanes APRN CNP PCP - General Nurse Practitioner 01/03/17 06/15/23 Bianka Yanes APRN CNP PCP - Assigned PCP 01/08/17 09/11/18 Bianka Yanes APRN CNP Assigned PCP 01/08/17 09/18/21 documented as of this encounter
--- OUTSIDE RECORDS SUMMARY | 2023-12-19 13:46 | XMS_ITS | Referral Summary ---
Author Organization [place] Address [facility] [place] [address] Care Team Providers Care Research Scholar Name Role Phone Unavailable Primary Care Provider [...] pap and colp per provider.; 03/08/2016; 08/2016 [place] (ROBINSON 1) PLAN: Cotest in 1year (DUE: [...] LAB - BLOOD ORDERABL ES OX LABORATORY [facility] [address] Lab (no room number, 1st floor of clinic) [place] [address], [place] [phone] * (ABNORMAL) Lipid panel reflex to direct LDL Fasting (09/18/2018 9:54 AM CDT) Pathologist [facility] Cholesterol 188 <200 mg/dL 09/18/2018 3:31 PM CDT [facility] Triglycerides 174(H) <150 mg/dL 09/18/2018 3:31 PM T [facility] Comment: Borderline high: ??150-199 mg/dl High: ? 200-499 mg/dl Very high: ? >499 mg/dl Fasting specimen HDL Cholesterol 48(L) >49 mg/dL 9 3:31 PM T [facility] LDL Cholesterol Calculated 105(H) <100 mg/dL 09/18/2018 3:31 PM T [facility] Comment: Above desirable: ??100-129 mg/dl Borderline High: ??130-159 mg/dL High: ? 160-189 mg/dL Very high: ? >189 mg/dl Non HDL Cholesterol 140(H) <130 mg/dL 09/18/2018 3:31 PM T [facility] Comment: Above Desirable: ??130-159 mg/dl Borderline high: ??160-189 mg/dl High: ? 190-219 mg/dl Very high: ? >219 mg/dl Blood specimen (specimen) 09/18/2018 9:54 AM CDT 09/18/2018 9:55 AM CDT Bianka Yanes APRN OFFSET LITHOGRAPHIC PRESS SETTER LAB - BLOOD ORDERABLES [facility] [address] [place] [address], [place] [phone] * ABSTRACT HPV-NO CHARGE (09/28/2017) HPV Abstract See Scanned Document [email or web address] LAB-CENTRAL LABORATORY 09/28/2017 Narrative [facility] [email or web address] LAB-CENTRAL LABORATORY - 09/28/2017 RESULTS FOUND IN CARE EVERYWHERE Amelia Yadav CMA ??P Abstract Quality Initiatives Please abstract the following data from this visit with this patient into the appropriate field in Epic: Pap smear done on this date: 09/28/2017 (approximately), by this group: [place], results were normal. Provider Outside LAB - HIM EXTERNAL R ESULT [facility] [email or web address] LAB-CENTRAL LABORATORY [address] * ABSTRACT PAP-NO CHARGE (09/28/2017) PAP-ABSTRACT See Scanned Document [facility] [email or web address] LAB-CENTRAL LABORATORY 09/28/2017 Narrative [facility] LAB-CENTRAL LABORATORY - 09/28/2017 RESULTS FOUND IN CARE EVERYWHERE Amelia Yadav SHEET WRITER ??P Abstract Quality Initiatives Please abstract the following data from this visit with this patient into the appropriate field in Epic: Pap smear done on this date: 09/28/2017 (approximately), by this group: [place], results were normal. Provider Outside LAB - [facility] EXTERNAL R [employer]ULT Performing Organization Address [facility]/ZIP Co de Phone Number [facility] [email or web address] LAB-CENTRAL LABORATORY [address] from Last 3 Months or Most Recently Relevant to Health Maintenance [address] [place] [address]
--- OUTSIDE RECORDS SUMMARY | 2023-12-19 13:46 | XMS_ITS | Continuity of Care Document ---
Author Name [facility] Organization [facility] Care Team Providers Care Cna Hha Name Role Phone [facility] Unavailable Unavailable Problems Combined list of problems from Department of Defense and [facility] facilities. It does not include entries that were removed or entered in error. Problem Status Onset Date Problem Type Date of Resolution Comments Source Laboratory Studies Inactive Condition Do D feeling tired or poorly Active Condition [facility] astigmatism regular Active Condition Do D refractive error - myopia Active Condition [facility] routine ophthalmological exam Inactive Condition DoD anemia Active Condition DoD dermatitis Inactive Condition [facility] Parent Education: Active Condition DoD Inactive Condition [facility] Test Positive Inactive Condition DoD earache Inactive Condition DoD Allergies, Adverse Reactions, Alerts Combined list of allergies from Department of Defense and Veterans Affairs facilities. It does not include entries that were removed or entered in error. Substance Category Reaction Severity Reaction type Status Date Reported Comments Source PENICILLINS {Cla } Drug allergy (disorder) Rash active 05/27/[address] [facility] Encounters Combined list of: 1) Encounters from Department of Veterans Affairs facilities going back up to thelast 18 months. 2) Encounters from the Department of Defense facilities going back up to 280 months. Location Location Details Encounter Type Encounter Number Reason For Visit Attending Provider ADM Date DC Date Status Disposition Source Agusto [address] [facility] Team B) OUTPATIENT [id number] pt states ear infecti on, painful TONNY GREEN N 05/27 Released w/o Limitations Agusto [address] [facility] Team B) Agusto [address] [facility](Director [employer] ) OUTPATIENT [id number] walk in pregnan cy test AVANI MULLINS 06/29 Released w/o Limitations Agusto [address] [facility](G yn) Agusto [address] [facility] olguero) OUTPATIENT [id number] BRANDON Purdy 12/05 Released w/o Limitations Agutso [address] [facility] [address] [facility]) TELE CONSULT [id number] Notes Entered by: PATRICE LEE 06 Dec 2011 1354 ------- ------- ------- ------- -- Lab results JADYN CALDERON 12/[address] [facility]) [address] [facility]) TELE CONSULT [id number] Notes Entered by: FROILAN BROWN 18 Jan 2012 1533 ------- ------- ------- ------- -- Need New OBGYDANNY Chavez 01/[address] [facility]) [address](Opt ometry Clinic) OUTPATIENT [id number] REE + ALICIA Agee 04/05 Released w/o Limitations [address] Group(O ptometr y Clinic) [address]([facility] Team B) OUTPATIENT [id number] Anemia during pregnan cy (still having same Sxs) DORIS GALLO 06/26 Released w/o Limitations [address] [facility] Medicin e Clinic Team B) [address] [facility] Team B) TELE CONSULT [id number] Notes Entered by: DAYO HORNE 04 Jul 2012 1227 ------- ------- ------- ------- -- Lab results RERE ALVAREZ 07/[address]([facility] Medicin e Clinic Team B) Procedures Combined [...] NEW PATIENT, 1 OR MORE VISITS 2 [facility] Prescription And Fitting Bilateral Corneal Lenses (Not For Aphakia) Prescription And Fitting Bilateral Corneal Lenses (Not For Aphakia) [id number] 2 ALICIA DUARTE Determination Of Refractive State Determination Of Refractive State 22075 2 ALICIA DUARTE Ophthalmological New Patient Start Comprehensive Care Ophthalmological New Patient Start Comprehensive Care [id number] 2 ALICIA DUARTE Social History Combined list of available smoking, tobacco, and other social history from Department of Defense and Veterans Affairs facilities. Social History Type Response Date Comment Laura wahl This section is an empty social history section. DoD
--- OUTSIDE RECORDS SUMMARY | 2023-12-19 13:46 | XMS_ITS | Clinical Summary ---
Author Organization [place] Address [facility] [place] [address] Care Team Providers Care Sort Line Worker Name Role Phone Unavailable Primary Care Provider [...] pap and colp per provider.; 03/08/2016; 08/2016 [place] (ROBINSON 1) PLAN: Cotest in 1year (DUE: [...] CDT Routine general medical examination at a [facility] care facility ABSTRACT PAP (HIM EXTERNAL [...] LAB - BLOOD ORDERABL ES OX LABORATORY [facility] Lab [address] Lab (no room number, 1st floor of clinic) [place] [address], [facility] [phone] * (ABNORMAL) Lipid panel reflex to direct LDL Fasting (09/18/2018 9:54 AM CDT) Cholesterol 188 <200 mg/dL 09/18/2018 3:31 PM CDT [facility] Triglycerides 174(H) <150 mg/dL 09/18/2018 3:31 PM CDT [facility] Comment: Borderline high: ??150-199 mg/dl High: ? 200-499 mg/dl Very high: ? >499 mg/dl Fasting specimen HDL Cholesterol 48(L) >49 mg/dL 9 3:31 PM CDT [facility] LDL Cholesterol Calculated 105(H) <100 mg/dL 09/18/2018 3:31 PM CDT [facility] Comment: Above desirable: ??100-129 mg/dl Borderline High: ??130-159 mg/dL High: ? 160-189 mg/dL Very high: ? >189 mg/dl Non HDL Cholesterol 140(H) <130 mg/dL 09/18/2018 3:31 PM CDT [facility] Comment: Above Desirable: ??130-159 mg/dl Borderline high: ??160-189 mg/dl High: ? 190-219 mg/dl Very high: ? >219 mg/dl Blood specimen (specimen) 09/18/2018 9:54 AM CDT 09/18/2018 9:55 AM CDT Bianka Yanes APRN PRICING SPECIALIST LAB - BLOOD ORDERABLES [facility] [address] [address], [facility] [phone] * ABSTRACT HPV-NO CHARGE (09/28/2017) HPV Abstract See Scanned Document [facility] LAB-CENTRAL LABORATORY 09/28/2017 Narrative [facility] fav.or.it LAB-CENTRAL LABORATORY - 09/28/2017 RESULTS FOUND IN CARE EVERYWHERE Amelia Yadav CUB REPORTER ??P Abstract Quality Initiatives Please abstract the following data from this visit with this patient into the appropriate field in Epic: Pap smear done on this date: 09/28/2017 (approximately), by this group: Sergeysabas, results were normal. Provider Outside LAB - HIM EXTERNAL R ClassBadgesULT Performing Organization Address City/[facility] [place]/ZIP Co de Phone Number [facility] LAB-CENTRAL LABORATORY [address] * ABSTRACT PAP-NO CHARGE (09/28/2017) PAP-ABSTRACT See Scanned Document [facility] fav.or.it LAB-CENTRAL LABORATORY 09/28/2017 Narrative [facility] fav.or.it LAB-CENTRAL LABORATORY - 09/28/2017 RESULTS FOUND IN CARE EVERYWHERE Amelia Yadav CUB REPORTER ??P Abstract Quality Initiatives Please abstract the following data from this visit with this patient into the appropriate field in Epic: Pap smear done on this date: 09/28/2017 (approximately), by this group: [place], results were normal. Provider Outside LAB - HIM EXTERNAL R Get 2 It Sales Performing Organization Address [facility] [place]/[facility] Co de Phone Number [facility] [employer]-CENTRAL LABORATORY [address] from Last 3 Months or Most Recently Relevant to Health Maintenance
--- NOTE | 2023-12-19 14:00 | CRLHL7_ITS ---
For Patients: As a result of the Cures Act, medical imaging exams and procedure reports are released immediately into your electronic medical record. You may view this report before your referring provider. If you have questions, please contact your health care provider. BILATERAL SCREENING MAMMOGRAM WITH COMPUTER-AIDED DETECTION AND TOMOSYNTHESIS TECHNIQUE: CC and MLO views were obtained. These mammographic images have been obtained using full-field digital technique. These mammographic images were interpreted with the benefit of computer-aided detection. Breast Tomosynthesis was used in this interpretation. COMPARISON FILM: 04/28/22. FINDINGS: The breasts are heterogeneously dense, which may obscure small masses IMPRESSION: There is no radiographic evidence for malignancy. ASSESSMENT: BI-RADS Category 1: Negative RECOMMENDATION: Routine screening mammogram in 1 year. A lay language report of this examination will be provided to the patient. MAVERICK RAY M.D. Diagnostic/Nuclear Medicine Radiologist [email or web address] JOSEY:pa Transcribed: 2:20 p.mErick winn/Dictated by: Maverick Ray MD @ 12/21/2023 8:56:00 AM (Electronically Signed)
== END 2023-12-19 13:45 | disposition home or self-care (01) ==
PROVIDERS: PCP Family Medicine; Visit Provider Family Medicine
DX: Z12.31 Encounter for screening mammogram for malignant neoplasm of breast (principal); R92.2 Inconclusive mammogram
CPT/HCPCS: 77063; 77067

== ENCOUNTER 2024-01-23 14:00 | Outpatient (CLI) | payer BC, SELFPAY ==
--- OUTSIDE RECORDS SUMMARY | 2024-01-23 14:04 | XMS_ITS | Referral Summary ---
Author Organization [place] Address [facility] [place] [address] Care Team Providers Care Artificial Breeding Distributor Name Role Phone Unavailable Primary Care Provider [...] pap and colp per provider.; 03/08/2016; 08/2016 [place] (ROBINSON 1) PLAN: Cotest in 1year (DUE: [...] LAB - BLOOD ORDERABL ES OX LABORATORY [facility] Lab [address] Lab (no room number, 1st floor of clinic) [place] [address], [place] [phone] * (ABNORMAL) Lipid panel reflex to direct LDL Fasting (09/18/2018 9:54 AM CDT) Pathologist [facility] Cholesterol 188 <200 mg/dL 09/18/2018 3:31 PM CDT [facility] Triglycerides 174(H) <150 mg/dL 09/18/2018 3:31 PM T [facility] Comment: Borderline high: ??150-199 mg/dl High: ? 200-499 mg/dl Very high: ? >499 mg/dl Fasting specimen HDL Cholesterol 48(L) >49 mg/dL 9 3:31 PM T [facility] LDL Cholesterol Calculated 105(H) <100 mg/dL 09/18/2018 3:31 PM T [facility] Comment: Above desirable: ??100-129 mg/dl Borderline High: ??130-159 mg/dL High: ? 160-189 mg/dL Very high: ? >189 mg/dl Non HDL Cholesterol 140(H) <130 mg/dL 09/18/2018 3:31 PM T [facility] Comment: Above Desirable: ??130-159 mg/dl Borderline high: ??160-189 mg/dl High: ? 190-219 mg/dl Very high: ? >219 mg/dl Blood specimen (specimen) 09/18/2018 9:54 AM CDT 09/18/2018 9:55 AM CDT Bianka Yanes APRN FAREBOX REPAIRER LAB - BLOOD ORDERABLES [facility] [address] [place] [address], [place] [phone] * ABSTRACT HPV-NO CHARGE (09/28/2017) HPV Abstract See Scanned Document [employer] LAB-CENTRAL LABORATORY 09/28/2017 Narrative [facility] LAB-CENTRAL LABORATORY - 09/28/2017 RESULTS FOUND IN CARE EVERYWHERE Amelia Yadav CMA ??P Abstract Quality Initiatives Please abstract the following data from this visit with this patient into the appropriate field in Epic: Pap smear done on this date: 09/28/2017 (approximately), by this group: [place], results were normal. Provider Outside LAB - HIM EXTERNAL R ESULT [facility] LAB-CENTRAL LABORATORY [address] * ABSTRACT PAP-NO CHARGE (09/28/2017) PAP-ABSTRACT See Scanned Document [facility] LAB-CENTRAL LABORATORY 09/28/2017 Narrative [facility] LAB-CENTRAL LABORATORY - 09/28/2017 RESULTS FOUND IN CARE EVERYWHERE Amelia Yadav KICK BOXER ??P Abstract Quality Initiatives Please abstract the following data from this visit with this patient into the appropriate field in Epic: Pap smear done on this date: 09/28/2017 (approximately), by this group: [place], results were normal. Provider Outside LAB - [facility] EXTERNAL R CommonTimeULT Performing Organization Address [facility]/ZIP Co de Phone Number [facility] Mod[facility] LAB-CENTRAL LABORATORY [address] from Last 3 Months or Most Recently Relevant to Health Maintenance [address] [place] [address]
--- OUTSIDE RECORDS SUMMARY | 2024-01-23 14:04 | XMS_ITS | Encounter Summary ---
Author Organization [place] Address [facility] [place] [address] Care Team Providers Care Aromatherapist Name Role Phone Bianka Yanes APRN, CNP Primary Care Provi margo Unavailable Bianka Yanes APRN, CNP Unavailable Un available Bianka Yanes APRN, CNP Unavailable Un available Encounter Details Date Type Department Care Team (Late st Contact Info) Description 05/18/2015 [facility] Medical Advice [address] [address] Alicia Cornejo MA Social History [...] on filedocumented in this encounter Care Teams Aromatherapist Relationship Specialty Start Date End Date Bianka Yanes APRN CNP PCP - General Nurse Practitioner 01/03/17 06/15/23 Bianka Yanes APRN CNP PCP - Assigned PCP 01/08/17 09/11/18 Bianka Yanes APRN CNP Assigned PCP 01/08/17 09/18/21 documented as of this encounter
--- OUTSIDE RECORDS SUMMARY | 2024-01-23 14:04 | XMS_ITS | Encounter Summary ---
Author Organization [place] Address [facility] [place] [address] Care Team Providers Care International Student Counselor Name Role Phone Bianka Yanes APRN, CNP Primary Care Provi margo Unavailable Bianka Yanes APRN, CNP Unavailable Un available Encounter Details Date Type Department Care Team (Late st Contact Info) Description 11/15/2018 [facility] [place] [facility] [address] [place] [address] [facility] Social History Tobacco Use Types Packs/Day Years [...] documented as of this encounter Care Teams International Student Counselor Relationship Specialty Start Date End Date Bianka Yanes APRN CNP PCP - General Nurse Practitioner 01/03/17 06/15/23 Bianka Yanes APRN CNP Assigned PCP 01/08/17 09/18/21 documented as of this encounter
--- OUTSIDE RECORDS SUMMARY | 2024-01-23 14:04 | XMS_ITS | Clinical Summary ---
Author Organization [place] Address [facility]0 [facility] [place] [address] Care Team Providers Care University Demonstrator Name Role Phone Unavailable Primary Care Provider [...] pap and colp per provider.; 03/08/2016; 08/2016 [place] (ROBINSON 1) PLAN: Cotest in 1year (DUE: [...] history exists LIPID 09/19/2023 09/18/2018 INFLUENZA VACCINE (#1) 2024 , 04/30/2021, 05/07/2020, Additional history exists GLUCOSE 03/21/2024 [...] general medical examination at a [facility] ABSTRACT PAP (HIM EXTERNAL RESULT) [...] - BLOOD ORDERABL ES OX LABORATORY [facility] Lab [address] Lab (no room number, 1st floor of clinic) [place] [address], [facility] [phone] * (ABNORMAL) Lipid panel reflex to direct LDL Fasting (09/18/2018 9:54 AM CDT) Cholesterol 188 <200 mg/dL 09/18/2018 3:31 PM CDT [facility] Triglycerides 174(H) <150 mg/dL 09/18/2018 3:31 PM CDT [facility] Comment: Borderline high: ??150-199 mg/dl High: ? 200-499 mg/dl Very high: ? >499 mg/dl Fasting specimen HDL Cholesterol 48(L) >49 mg/dL 9 3:31 PM CDT [facility] LDL Cholesterol Calculated 105(H) <100 mg/dL 09/18/2018 3:31 PM CDT [facility] Comment: Above desirable: ??100-129 mg/dl Borderline High: ??130-159 mg/dL High: ? 160-189 mg/dL Very high: ? >189 mg/dl Non HDL Cholesterol 140(H) <130 mg/dL 09/18/2018 3:31 PM CDT [facility] Comment: Above Desirable: ??130-159 mg/dl Borderline high: ??160-189 mg/dl High: ? 190-219 mg/dl Very high: ? >219 mg/dl Blood specimen (specimen) 09/18/2018 9:54 AM CDT 09/18/2018 9:55 AM CDT Bianka Yanes APRN BATCH AND FURNACE OPERATOR LAB - BLOOD ORDERABLES [facility] [address] [address], [facility] [phone] * ABSTRACT HPV-NO CHARGE (09/28/2017) HPV Abstract See Scanned Document [facility] LAB-CENTRAL LABORATORY 09/28/2017 Narrative [facility] [employer] LAB-CENTRAL LABORATORY - 09/28/2017 RESULTS FOUND IN CARE EVERYWHERE Amelia Yadav NATURAL RESOURCE TECHNICIAN ??P Abstract Quality Initiatives Please abstract the following data from this visit with this patient into the appropriate field in Epic: Pap smear done on this date: 09/28/2017 (approximately), by this group: [place]ysabas, results were normal. Provider Outside LAB - HIM EXTERNAL R [id number] Performing Organization Address City/[facility]/ZIP Co de Phone Number [facility] LAB-CENTRAL LABORATORY [address] * ABSTRACT PAP-NO CHARGE (09/28/2017) PAP-ABSTRACT See Scanned Document [facility] [employer] LAB-CENTRAL LABORATORY 09/28/2017 Narrative [facility] [employer] LAB-CENTRAL LABORATORY - 09/28/2017 RESULTS FOUND IN CARE EVERYWHERE Amelia Yadav NATURAL RESOURCE TECHNICIAN ??P Abstract Quality Initiatives Please abstract the following data from this visit with this patient into the appropriate field in Epic: Pap smear done on this date: 09/28/2017 (approximately), by this group: [place], results were normal. Provider Outside LAB - HIM EXTERNAL R Kickplay Performing Organization Address [facility] Co de Phone Number [facility] [employer]-CENTRAL LABORATORY [address] from Last 3 Months or Most Recently Relevant to Health Maintenance
--- OUTSIDE RECORDS SUMMARY | 2024-01-23 14:04 | XMS_ITS | Continuity of Care Document ---
Author Name [facility] Organization [facility] Care Team Providers Care Scleroscope Tester Name Role Phone [facility] Unavailable Unavailable Problems Combined list of problems from Department of Defense and Veterans [facility] facilities. It does not include entries that were removed or entered in error. Problem Status Onset Date Problem Type Date of Resolution Comments Source Laboratory Studies Inactive Condition Do D feeling tired or poorly Active Condition [facility] astigmatism regular Active Condition Do D refractive error - myopia Active Condition [facility] routine ophthalmological exam Inactive Condition DoD anemia Active Condition DoD dermatitis Inactive Condition [facility] Parent Education: Active Condition DoD Inactive Condition [facility] Test Positive Inactive Condition DoD earache Inactive Condition DoD Allergies, Adverse Reactions, Alerts Combined list of allergies from Department of Defense and Veterans Affairs facilities. It does not include entries that were removed or entered in error. Substance Category Reaction Severity Reaction type Status Date Reported Comments Source PENICILLINS {Cla } Drug allergy (disorder) Rash active 05/27/[address] [facility] Encounters Combined list of: 1) Encounters from Department of Veterans Affairs facilities going back up to thelast 18 months. 2) Encounters from the Department of Defense facilities going back up to 280 months. Location Location Details Encounter Type Encounter Number Reason For Visit Attending Provider ADM Date DC Date Status Disposition Source Agusto [address] [facility] Medicine Clinic Team B) OUTPATIENT [id number] pt states ear infecti on, painful TONNY GREEN N 05/27 Released w/o Limitations [facility]ust[facility] [address] [facility](F amil Medicin e Clinic Team B) Agusto [address] [facility](Utility Person ) OUTPATIENT [id number] walk in pregnan cy test AVANI MULLINS 06/29 Released w/o Limitations [facility]ust[facility] [address] [facility](G yn) Agusto [address] [facility] olguero) OUTPATIENT [id number] BRANDON Purdy 12/05 Released w/o Limitations [facility]usto [address] [facility] [address] [facility]) TELE CONSULT [id number] Notes Entered by: PATRICE LEE 06 Dec 2011 1354 ------- ------- ------- ------- -- Lab results JADYN CALDERON 12/[address] [facility] [address] [facility]) TELE CONSULT [id number] Notes Entered by: FROILAN BROWN 18 Jan 2012 1533 ------- ------- ------- ------- -- Need New OBGYDANNY Chavez 01/[address] [facility] [address](Opt ometry Clinic) OUTPATIENT [id number] REE + ALICIA Agee 04/05 Released w/o Limitations [address] Group(O ptometr y Clinic) [address]([facility] Medicine Clinic Team B) OUTPATIENT [id number] Anemia during pregnan cy (still having same Sxs) DORIS GALLO 06/26 Released w/o Limitations [address] [facility] Medicin e Clinic Team B) [address] Medical [facility] Medicine Clinic Team B) TELE CONSULT [id number] Notes Entered by: DAYO HORNE 04 Jul 2012 1227 ------- ------- ------- ------- -- Lab results RERE ALVAREZ 07/[address]([facility] Medicin e Clinic Team B) Procedures [...] NEW PATIENT, 1 OR MORE VISITS 2 [facility] Prescription And Fitting Bilateral Corneal Lenses (Not For Aphakia) Prescription And Fitting Bilateral Corneal Lenses (Not For Aphakia) [address] 2 ALICIA DUARTE Determination Of Refractive State Determination Of Refractive State 56172 2 ALICIA DUARTE Ophthalmological New Patient Start Comprehensive Care Ophthalmological New Patient Start Comprehensive Care 02994 2 ALICIA DUARTE Social History Combined list of available smoking, tobacco, and other social history from Department of Defense and Veterans Affairs facilities. Social History Type Response Date Comment Laura wahl This section is an empty social history section. DoD
[2024-01-24 14:43] LABS: Anti-Nuclear Ab(ANA)IgG ELISA None Detected (None Detected)
== END 2024-01-23 14:01 | disposition home or self-care (01) ==
PROVIDERS: Physician Assistant; PCP Family Medicine
DX: M79.18 Myalgia, other site (principal)
CPT/HCPCS: 36415; 86039

== ENCOUNTER 2024-01-29 13:00 | Outpatient (RCR) | payer BC, SELFPAY | END 2024-05-08 11:33 | disposition home or self-care (01) | PROVIDERS: PCP Family Medicine; Visit Provider Family Medicine | DX: M54.2 Cervicalgia (principal); M54.9 Dorsalgia, unspecified; G89.29 Other chronic pain; M54.12 Radiculopathy, cervical region; Z51.89 Encounter for other specified aftercare | CPT/HCPCS: 97110; 97140; 97161 ==

== ENCOUNTER 2024-12-31 08:09 | Outpatient (CLI) | payer BC, SELFPAY ==
--- OUTSIDE RECORDS SUMMARY | 2024-12-12 13:30 | XMS_ITS | Encounter Summary ---
Author Organization [facility] Address [address] [place] [address] Care Team Providers Care Materials Supervisor Name Role Phone Mari Ortiz MD Primary Care Provider [phone] Reason for Visit * Reason Comments Follow up Headache Encounter Details Date Type Department Care Team (Late st Contact Info) Description 12/12/2024 1:30 PM CDT Virtual Visit [facility] - [address] [place] [address] [phone] Chanda Guadalupe PA-C [address] [place] [id number] Migraine without aura and without status migrainosus, not intractable (Primary Dx) Social History Tobacco Use Types Packs/Day Years Used Date Smoking Tobacco: Former Cigarettes Smokeless Tobacco: Never Comments:Quit smoking cigare ttes 11 years ago. Comments No Sex and Gender Information Value Date Recorded Sex Assigned at Not on file Legal Sex Female 8:47 AM CDT Gender Identity Not on file Sexual Orientation Not on file documented as of this encounter Patient Instructions * Patient Instructions* Chanda Guadalupe PA-C - 12/12/2024 1:30 PM CDT No changes today. If physical therapy seems to exacerbate symptoms, discontinue. Follow-up in 6 months; sooner if needed. documented in this encounter Progress Notes * Chanda Guadalupe PA-C - 12/12/2024 1:30 PM CDT CHIEF COMPLAINT: f/u This is an interactive audiovisual (video) visit that was performed with the originating site at patient's home and the distant site at provider's office. Verbal consent to participate in the visit was obtained. I discussed with the patient the nature of our interactive video visit, that: 1. I would evaluate the patient and recommend diagnostics and treatments based on my assessment 2. Our sessions are not being recorded and that personal health information is protected 3. Our team would provide follow up care in person if/when the patient needs it. HISTORY OF PRESENTING ILLNESS: Ms. Nolasco is a very pleasant 44-year-old female presenting today via A/V visit for follow-up regarding headaches, myofascial pain. The patient has been using Nurtec as needed and has discontinued nortriptyline. She's only taken Nurtec twice, it worked once and it did not work one. She reports doing well without nortriptyline andis considering physical therapy for long-term management. The patient has been using Sumatriptan 100 mg as needed if the Nurtec does not work. Overall, she tells me today that she is doing really well. Probably the best that she has been doing over the last several months. FOCUSED NEUROLOGICAL EXAMINATION: Focused neurological examination is difficult as this is an audiovisual visit. Patient was able to answer all my questions clearly and carry on a good conversation. Facial features appeared symmetric. No obvious tremors in her hands. ASSESSMENT/PLAN: Ms. Nolasco is a 44-year-old female presenting today for follow- up regarding headaches, myofascial pain. At her last visit, she stopped her nortriptyline, has continue Nurtec and sumatriptan as needed for breakthrough migraines. She states that she is doing very well. She did well coming off of the nortriptyline. She is going back to physical therapy to try this again. Otherwise, the headaches have been very well-controlled. She is only had to try to take the Nurtec twice. We reviewed the following today: Continue using Nurtec and Sumatriptan as needed for migraine management. Consider physical therapy for long-term management, but discontinue if it exacerbates symptoms. Follow up in six months to evaluate the effectiveness of the current management plan. Contact the clinic if symptoms worsen before the scheduled follow-up. I have discussed the above details with Ms. Nolasco at great length and she expressed understanding.she seemed satisfied with this conversation, and had no further queries as of now. she has our contact information and has been advised to stay in touch with us regarding any other issues that may arise. Thank you for allowing me to participate in Ms. Nolasco's care. Chanda Guadalupe PA-C [facility] 4:36 PM 12/12/2024 MIPS 2024: Documentation of current mediations reviewed every visit 2. Does patient use tobacco? No 3. Patient has had no falls in calendar year 4. Does patient have Dementia? No I spent 20 minutes on the date of the encounter with this patient consisting of activities before, during and after the encounter including time spent: Preparing to see the patient including review of the chart, tests, and/or outside records. Reviewing and verifying information regarding the chief complaint and history already recorded by ancillary staff and/or the patient. Obtaining history and performing medically appropriate evaluation. Counseling the patient regarding the diagnosis, additional diagnostic considerations, possible diagnostic testing, and any potential options for therapy, including conservative/lifestyle measures and pharmacotherapy including risks/benefits, side effects and adverse effects. I also counseled the patient on how to contact me with any questions or concerns, new or worsening symptoms. Ordering medications, tests, and/or procedures, and documenting the chart. Please excuse any typographical errors, as this note was generated using a Voice Recognition Software. I am the single focal point of care for a condition that requires longitudinal relationship and personalized care for condition(s) specified within this medical record documented in this encounter Plan of Treatment Not on file documented as of this encounter Visit Diagnoses Diagnosis Migraine without aura and without status migrainosus, not intractable- Primary Migraine without aura, without mention of intractable migraine without mention of status migrainosus documented in this encounter Care Teams Materials Supervisor Relationship Specialty Start Date End Date Mari Ortiz MD [address] [place] [address] PCP - General Family Medicine 12/15/23 documented as of this encounter
--- NOTE | 2024-12-31 08:15 | CRLHL7_ITS ---
For Patients: As a result of the Century Cures Act, medical imaging exams and procedure reports are released immediately into your electronic medical record. You may view this report before your referring provider. If you have questions, please contact your health care provider. INDICATION: SCREENING MAMMOGRAM, ASYMPTOMATIC 44 Y/O FEMALE COMPARISON: 12/19/2023, 04/28/2022 TECHNIQUE: Digital mammogram in CC and MLO projections including computer-aided detection (CAD) and tomosynthesis. BREAST COMPOSITION: The breasts are heterogeneously dense, which may obscure small masses. FINDINGS: No suspicious findings. ASSESSMENT: BI-RADS 1 Negative RECOMMENDATION: Annual screening mammogram. A lay language report of this examination will be provided to the patient. Dictated by: Pedro Luis Rodriguez MD @ 12/31/2024 12:14:52 (Electronically Signed)
--- OUTSIDE RECORDS SUMMARY | 2025-01-01 00:30 | XMS_ITS | Continuity of Care Document ---
Author Name [facility] Organization [facility] Care Team Providers Care Workers Compensation Claims Supervisor Name Role Phone [facility] Unavailable Unavailable Problems Combined list of problems from Department of Defense and Veterans Affairs facilities. It does not include entries that were removed or entered in error. Problem Status Onset Date Problem Type Date of Resolution Comments Source Laboratory Studies Inactive Condition Do D feeling tired or poorly Active Condition [facility]D ASTIGMATISM - REGULAR Active Condition [facility] REFRACTIVE ERROR - MYOPIA Active Condition [facility] NORMAL ROUTINE OPHTHALMOLOGICAL EXAM Inactive Condition [facility] ANEMIA Active Condition [facility] DERMATITIS Inactive Condition [facility] Parent Education: Active Condition DoD Inactive Condition [facility] Test Positive Inactive Condition Do[facility] earache Inactive Condition [facility] Allergies, Adverse Reactions, Alerts Combined list of allergies from Department of Defense and Veterans Affairs facilities. It does not include entries that were removed or entered in error. Substance Category Reaction Severity Reaction type Status Date Reported Comments Source PENICILLINS {Cla } Drug allergy (disorder) Rash active 05/27/2011 Agusto B- [facility] Encounters Combined list of: 1) Encounters from Department of Veterans Affairs facilities going backup to the last 18 months, not all [place] inpatient encounters are included; 2) Encounters from the Department of Defense facilities going backup to 280 months. Location Location Details Encounter Type Encounter Number Reason For Visit Attending Provider ADM Date DC Date Status Disposition Source Agusto DOBSON [facility] Team B) OUTPATIENT [id number] pt states ear infecti on, painful TONNY GREEN N 05/27 Released w/o Limitations Agusto DOBSON [facility] e [facility] Team B) Agusto DOBSON [facility](Ceramic Engineer ) [facility]PAT[id number] [facility] AVANI MULLINS 06/29 Released w/o Limitations Agusto B [facility](G yn) Agusto DOBSON [facility]) OUTPATIENT [id number] BRANDON Purdy 12/05 Released w/o Limitations Agusto [address] [facility]) [address] [facility]) TELE CONSULT [id number] Notes Entered by: PATRICE LEE 06 Dec 2011 1354 ------- ------- ------- ------- -- Lab results JADYN CALDERON 12/[address] [facility]) [address] [facility]) TELE CONSULT [id number] Notes Entered by: FROILAN BROWN 18 Jan 2012 1533 ------- ------- ------- ------- -- Need New OBGYN DANNY Red 01/[address] [facility]) [address](Opt ometry Clinic) OUTPATIENT [id number] REE + ALICIA Agee 04/05 Released w/o Limitations [address] Group(O ptometr y Clinic) [address]([facility] Team B) OUTPATIENT [id number] Anemia during pregnan cy (still having same Sxs) DORIS GALLO 06/26 Released w/o Limitations [address] [facility] Team B) [address] [facility] Team B) TELE CONSULT [id number] Notes Entered by: DAYO HORNE 04 Jul 2012 1227 ------- ------- ------- ------- -- Lab results RERE ALVAREZ 07/[address] Medical [facility] Medicin Clinic Team B) Procedures Combined list of: 1) Procedures from Department of Veterans Affairs facilities going back up to thelast 18 months, not all VA non-surgical procedures are included; 2) All procedures from the Department of Defense facilities. Procedure Procedure Type Code Date [facility] Comments Bairon vish Prescription & Fitting Bilateral Corneal Lenses (Not Aphakia Prescription & Fitting Bilateral Corneal Lenses (Not Aphakia [address] [facility] Determination Of Refractive State Determination Of Refractive State 45945 2 ALICIA DUARTE Ophthalmological New Patient Start Comprehensive Care Ophthalmological New Patient Start Comprehensive Care 65354 2 ALICIA DUARTE OPHTHALMOLOGICAL SERVICES: MEDICAL EXAMINATION AND EVALUATION WITH INITIATION OF DIAGNOSTIC AND TREATMENT PROGRAM; COMPREHENSIVE, NEW PATIENT, 1 OR MORE VISITS 2 DoD Social History Combined list of available smoking, tobacco, and other social history from Department of Defense and Veterans Affairs facilities. Social History Type Response Date Comment Bairon vish This section is an empty social history section. DoD
--- OUTSIDE RECORDS SUMMARY | 2025-01-01 00:49 | XMS_ITS | Clinical Summary ---
Author Organization [facility] Address [address] , [address] [place] [address] Phone Care Team Providers Care Picking Machine Operator Name Role Phone Richard RN, BSN, Theresa Unavailable Unavailable Conditions or Problems Problem Name Problem Code Onset Date Status Entry Date Provider Comment Standard Description Annotate Hand numbness 851048065 (SNOMED CT) Active Micah Addison MD Numbness of hand Ulnar neuropathy, bilateral 521408909 (SNOMED CT) Active Micah Addison MD Ulnar neuropathy Medications No information available. Medications Administered No information available. Allergies, Adverse Reactions, Alerts No information available. Results Date Name Value Unit Range Flag Description Internal Other: Authorizatio n - OBS [email or web address] Yes Authoriza tion: Release of Information - Authorize [facility] - Payment and Healthcare Operations ROIAUTHOTHER Yes Authoriz ation: Release of Information - Authorize Others/Insurance - Payment and Healthcare Operations HIECONSENT Yes Consent To Release information to the Health Information Exchange (HIE) AUTHVMEMTM Yes Authorizat ion: Authorization for [facility] to leave messages, voicemail, send text messages, send emails AUTHRELHCARE Yes Authoriz ation: Release/Retrieval of Information to/from Healthcare Facilities, Pharmacy Benefit Payers and Providers AUTHPRIVPRAC Yes Authoriz ation: Notice of privacy practices AUTHBENEFIT Yes Authoriza tion: Assignment of Benefits and Payment Agreement Internal Other: Verbal Autho rization/Emergency Contact - OBS VERBAL_EMER Done Verbal au thorization and emergency contact Plan of Care No information available. Procedures Code Procedure Name Date Entry Date CPT-62264 Nerve Conduction 13 or more studies 10/25 CPT-53434 EMG with NCS (5+ muscles) - 2 limbs 10/25 Vital Signs No information available. Immunizations No information available. Advance Directives No information available.
--- OUTSIDE RECORDS SUMMARY | 2025-01-01 00:49 | XMS_ITS | Clinical Summary ---
Author Organization [facility] Address [facility] [place] [address] Care Team Providers Care Sleeve Maker Name Role Phone Unavailable Primary Care Provider Unavailabl e Allergies Active Allergy Reactions Criticality Noted Date Comments Penicillins Rash Low 09/16/2014 Medications Fexofenadine HCl (STEPHY PO) Active Fluticasone Propionate (FLONASE NA) Active ondansetron (ZOFRAN) 4 MG tabletIndicatio ns:Nausea TAKE ONE TABLET BY MOUTH EVERY 8 HOURS NEEDED FOR NAUSEA 20 tablet 3 8 Active SPRINTEC 28 0.25-35 MG-MCG tablet 9 Active fluconazole (DIFLUCAN) 150 MG tabletIndicatio ns:Yeast infection of the vagina Take 1 tablet today, repeat in 7 days if needed. 2 tablet 9 Active Additional Information Patient not taking.Reported on 10/21/2022 SUMAtriptan (IMITREX) 100 MG tablet TAKE ONE TABLET BY MOUTH ONCE A DAY NEEDED FOR MIGRAINE HEADACHES 3 Active metoprolol succinate ER (TOPROL XL) 25 MG 24 hr tablet Take 1 tablet by mouth daily at 2 pm 3 Active Active Problems Problem Noted Date Diagnosed Date Anxiety 02/07/2018 Liver hemangioma 02/09/2017 Overview (02/09/2017): Noted on CT 02/2017, due for follow up US in 6 months (08/2017) H/O tubal ligation 02/07/2017 Atypical squamous cells of u ndetermined significance on cytologic smear of cervix (ASC-US) 01/03/2017 Overview (01/03/2017): Overview: 04/02/2015 - had colp in . repeat pap and colp per provider.; 03/08/2016; 08/2016 [place] (ROBINSON 1) PLAN: Cotest in 1year (DUE: 08/2017) CARDIOVASCULAR SCREENING; LDL GOAL LESS THAN 160 03/24/2015 Resolved Problems Problem Noted Date Diagnosed Date Resolved Date Hip pain, left 03/02/2017 05/16/2017 Immunizations Immunization Administration Dates Next Due Influenza Vaccine >6 [...] School Help Needed Not on file 03/31 Comments No Sex and Gender Information Value Date Recorded Sex Assigned at Not on file Legal Sex Female 3:23 PM GLOBAL LOGISTICS MANAGER Gender Identity Not on file Sexual Orientation Not on file Last Filed Vital Signs Vital Sign Reading Time Taken Comments Blood Pressure 112/75 10/21/2022 12:03 PM CDT Pulse 91 10/21/2022 12:03 PM CDT Temperature 36.8 C (98.3 F) 10/21/2022 12:03 PM CDT Respiratory Rate 16 03/21/2021 3:49 [...] 1996 HEPATITIS C SCREENING 1999 HEPATITIS B VACCINE (1 of 3 - 19+ 3-dose series) 2000 YEARLY PREVENTIVE VISIT 09/19/2019 09/18/2018 HPV TEST 09/28/2020 09/28/2017, 09/28/2017 PAP 09/28/2020 09/28/2017, 09/08, 09/28/2017, Additional history exists LIPID 09/19/2023 09/18/2018 COVID-19 VACCINE ( season) 2024 05/06/2022, 10/09/2020, 09/11/2020 DIABETES SCREENING 03/21/2024 03/21/2021, 0 09/18/2018, 02/07/2017 PHQ-2 (once per calendar year) 2024 09/18/2018, 08/21/2018, 02/07/2018, Additional history exists INFLUENZA VACCINE (Season Ended) 2025 05/06/2022, 04/30/2021, 05/07/2020, Additional history exists DTAP/TDAP/TD VACCINE (2 - Td or Tdap) 12/16/2025 12/17/2015 ZOSTER VACCINE (1 of 2) 2031 HPV VACCINE Aged Out No longer eligi ble based on patient's age to complete this topic MENINGITIS VACCINE Aged Out No longer eligible based on patient's age to complete this topic PNEUMOCOCCAL VACCINE: PEDIATRICS (0 to 5 YEARS) AND AT-RISK PATIENTS (6 to 49 YEARS) Aged Out No longer eligible based on [...] 4:20 PM CDT 03/21/2021 4:21 PM CDT us Rodriguez Aparicio PA-C LAB - BLOOD ORDERABLES Final Result [facility] [address] Lab (no room number, 1st floor of clinic) [place] [address], [facility] [[email or web address]] [phone] * (ABNORMAL) Lipid panel reflex to direct LDL Fasting (09/18/2018 9:54 AM CDT) Cholesterol 188 <200 mg/dL 09/18/2018 3:31 PM CDT [facility] Triglycerides 174(H) <150 mg/dL 09/18/2018 3:31 PM T [facility] Comment: Borderline high: 150-199 mg/dl High: 200-499 mg/dl Very high: >499 mg/dl Fasting specimen HDL Cholesterol 48(L) >49 mg/dL 9 3:31 PM CDT [facility] LDL Cholesterol Calculated 105(H) <100 mg/dL 09/18/2018 3:31 PM T [facility] Comment: Above desirable: 100-129 mg/dl Borderline High: 130-159 mg/dL High: 160-189 mg/dL Very high: >189 mg/dl Non HDL Cholesterol 140(H) <130 mg/dL 09/18/2018 3:31 PM T [facility] Comment: Above Desirable: 130-159 mg/dl Borderline high: 160-189 mg/dl High: 190-219 mg/dl Very high: >219 mg/dl Blood specimen (specimen) 09/18/2018 9:54 AM CDT 09/18/2018 9:55 AM CDT Bianka Yanes APRN DRIED YEAST SUPERVISOR LAB - BLOOD ORDERAB LES Final Result [facility] [address] [place] [address], [facility] [[email or web address]] [phone] * ABSTRACT HPV-NO CHARGE (09/28/2017) HPV Abstract See Scanned Document [facility] 09/28/2017 Narrative [facility] - 09/28/2017 RESULTS FOUND IN CARE EVERYWHERE Amelia Yadav CMA P Abstract Quality Initiatives Please abstract the following data from this visit with this patient into the appropriate field in Epic: Pap smear done on this date: 09/28/2017 (approximately), by this group: [facility], results were normal. Provider Outside LAB - HIM EXTERNAL RESULT Edite d Result - Final [facility] [address] * ABSTRACT PAP-NO CHARGE (09/28/2017) PAP-ABSTRACT See Scanned Document [facility] 09/28/2017 Narrative [facility] - 09/28/2017 RESULTS FOUND IN CARE EVERYWHERE Amelia Yadav CMA P Abstract Quality Initiatives Please abstract the following data from this visit with this patient into the appropriate field in Epic: Pap smear done on this date: 09/28/2017 (approximately), by this group: [facility], results were normal. Provider Outside LAB - HIM EXTERNAL RESULT Edite d Result - Final Performing Organization Address [facility] Co de Phone Number [facility] [address] from Last 3 Months or Most Recently Relevant to Health Maintenance Insurance [facility] [employer] PROGRAM
--- OUTSIDE RECORDS SUMMARY | 2025-01-01 00:49 | XMS_ITS | Clinical Summary ---
Author Organization [facility] Address [address] [place] [address] Care Team Providers Care Raw Stock Machine Feeder Name Role Phone Mari Ortiz MD Primary Care Provider [phone] Allergies Active Allergy Reactions Criticality Noted Date Comments Penicillins Rash Low 09/16/2014 Medications ondansetron (ZOFRAN) 4 mg oral tablet Take 1 tablet (4 mg) by mouth every 6 (six) hours. Active LORazepam (ATIVAN) 0.5 mg oral tablet PLEASE SEE ATTACHED FOR DETAILED DIRECTIONS 4 Active fexofenadine (STEPHY ALLERGY) 60 mg oral tablet Take by mouth. Act carloz fluticasone (FLONASE) 50 mcg/actuation nasal spray Instill into each nostril. Active rimegepant (NURTEC ODT) 75 mg oral TbDLIndications :Migraine without aura and without status migrainosus, not intractable Dissolve 1 tablet (75 mg) in mouth once a day as needed (for migraines). 8 tablet 1 5 Active SUMAtriptan succinate (IMITREX) 100 mg oral tabletIndicatio ns:Migraine without aura and without status migrainosus, not intractable TAKE ONE TABLET AT THE ONSET OF A MIGRAINE. CAN TAKE A SECOND TABLET TWO HOURS LATER IF NEEDED. NO MORE THAN 2 TABS/DAY, 4 TABS/WEEK OR 8 TABS/MONTH. MAXIMUM 200 MG/24 HOURS. 9 tablet 2 5 Active nortriptyline (PAMELOR) 25 mg oral capsuleIndicati ons:Myofascial pain,Bilateral occipital neuralgia Take 3 capsules (75 mg) by mouth at bedtime. 270 capsule 5 12/13/19 25 Discontin ued(Medic ation ineffecti ve) Active Problems Problem Noted Date Diagnosed Date ASCUS with positive high risk HPV cervical 02/13 Overview (02/14/2024): 04/02/2015 - had colp in . repeat pap and colp per provider.; 03/08/2016; 08/2016 [place] (ROBINSON 1) 09/2017:Cotest NIL/HPV Negative Plan: Cotest @ 3 years~ 09/2020 Hand numbness 10/26/2023 Ulnar neuropathy 10/26/2023 Anxiety 02/07/2018 Vitamin D deficiency 09/28/2017 Liver hemangioma 02/09/2017 Overview (02/14/2024): Noted on CT 02/2017, due for follow up US in 6 months (08/2017) H/O tubal ligation 02/07/2017 Lower abdominal pain 02/02/2017 Atypical squamous cells of u ndetermined significance on cytologic smear of cervix (ASC-US) 01/03/2017 Overview (02/14/2024): Overview: 04/02/2015 - had colp in . repeat pap and colp per provider.; 03/08/2016; 08/2016 [place] (ROBINSON 1) PLAN: Cotest in 1year (DUE: 08/2017) Heartburn during 12/17/2015 History of seasonal allergies 04/03/2015 Overview (02/14/2024): allergy shots and Singulair - followed by scientific laboratory supervisor. Encounter for screening for cardiovascular disor ders 03/24/2015 Encounters Date Type Department Care Team Description 12/12/2024 1:30 PM CDT Virtual Visit [facility] [address] [place] [address] Chanda Guadalupe PA-C Migraine without aura and without status migrainosus, not intractable (Primary Dx) 10/10/2024 Community Care Management [facility] [address] [place] [address] Reagan Alfreda 10/08/2024 9:30 AM CDT Virtual Visit [facility] - [address] [place] [address] Chanda Guadalupe PA-C Migraine without aura and without status migrainosus, not intractable (Primary Dx) from Last 3 Months Social History Tobacco Use Types Packs/Day Years Used Date Smoking Tobacco: Former Cigarettes Smokeless Tobacco: Never Tobacco Cessation:Counseling Given: Not Answered Comments:Quit smoking cigarettes 11 years ago. Comments No Sex and Gender Information Value Date Recorded Sex Assigned at Not on file Legal Sex Female 8:47 AM CDT Gender Identity Not on file Sexual Orientation Not on file Last Filed Vital Signs Vital Sign Reading Time Taken Comments Blood Pressure - - Pulse - - Temperature - - Respiratory Rate 14 09/18/2024 7:55 AM CDT Oxygen Saturation - - Inhaled Oxygen Concentration - - Weight 61.2 kg (135 lb) 09/18/2024 7:55 AM CDT Height 167.6 cm (5' 6) 09/18/2024 7:55 AM CDT Body Mass Index 21.79 09/18/2024 7:55 AM CDT Plan of Treatment Health Maintenance Due Date Last Done Comments Hepatitis C Screening 1981 Lipid Screening 1981 Mammogram Screening 1981 Pap Smear 1981 Anxiety Follow-Up (URSULA-7) 1982 Depression Assessment (PHQ-2) 1982 Influenza Vaccine (Season Ended) 2025 05/06/2022, 04/07/2017, 04/09/2016, Additional history exists Adult Tetanus Booster 12/16/2025 12/17/2015 RSV Vaccines (1 - 1-dose 75+ series) 2056 COVID-19 Vaccine Completed 05/15/2024 Meningococcal B Vaccine Aged Out No l onger eligible based on patient's age to complete this topic Pneumococcal Vaccine Aged Out No long er eligible based on patient's age to complete this topic Insurance [facility] HIGH VALUE NETWORK [facility] Address: [address] [address] [place] [address] [facility] [employer] Care Teams Raw Stock Machine Feeder Relationship Specialty Start Date End Date Mari Ortiz MD [address] [place] [address] PCP - General Family Medicine 12/15/23
--- OUTSIDE RECORDS SUMMARY | 2025-01-01 00:50 | XMS_ITS | Encounter Summary ---
Author Organization [place] Address [facility] [place] [address] Care Team Providers Care Registration Scheduling Specialist Name Role Phone Bianka Yanes APRN, CNP Primary Care Provi margo Unavailable Bianka Yanes APRN, CNP Unavailable Un available Encounter Details Date Type Department Care Team (Late st Contact Info) Description 11/15/2018 [facility] [address] [place] [address] [facility] Social History Tobacco Use Types Packs/Day Years Used Date Smoking Tobacco: Former Cigarettes Smokeless Tobacco: Never Alcohol Use Standard Drinks/Week Comments Yes 0 (1 standard drink = 0.6 oz pur e alcohol) Occ. 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
--- OUTSIDE RECORDS SUMMARY | 2025-01-01 00:50 | XMS_ITS | Clinical Summary ---
Author Organization [facility] Address [address] [place] [address] Care Team Providers Care Motorcycle Delivery Driver Name Role Phone Bianka Yanes NP Primary Care Provider Unavaila ble Allergies Active Allergy Reactions Criticality Noted Date Comments Penicillins Rash 04/02/2015 Medications fluticasone (50 mcg per actuation) nasal solution (FLONASE) Inhale 1 [place] into both nostrils once daily. 1 Bottle 0 01/14/2016 Active ibuprofen (ADVIL; MOTRIN) 600 mg tabletIndicatio ns:History of 3 sections,Superv ision of high risk in first trimester (HC) Take 1 tablet by mouth every 6 hours. Maximum of 3200 mg in 24 hours. 40 tablet 0 02/05/2016 Active ondansetron (ZOFRAN) 4 mg tablet Take by mouth. Active fexofenadine-ps eudoephedrine, 180-240 MG, (STEPHY-D) 180-240 mg per tablet Take 1 tablet by mouth once daily. 0 09/28/2017 Active Active Problems Problem Noted Date Diagnosed Date Vitamin D deficiency 09/28/2017 Lower abdominal pain 02/02/2017 Heartburn during 12/17/2015 History of seasonal allergies 04/03/2015 Overview (04/03/2015): allergy shots and Singulair - followed by reading recovery teacher. ASCUS with positive high risk HPV cervical Overview (10/10/2017): 04/02/2015 - had colp in . repeat pap and colp per provider.; 03/08/2016; 08/2016 [place] (ROBINSON 1) 09/2017:Cotest NIL/HPV Negative Plan: Cotest @ 3 years~ 09/2020 Resolved Problems Problem Noted Date Diagnosed Date Resolved Date Supervision of high risk pre gnancy in first trimester 08/20/2015 02/02/2017 History of 3 sections 07/19/2015 02/02/2017 History of pre-eclampsia in prior , currently in first trimester 07/19/2015 H/O section 04/03/2015 017 Overview (04/03/2015): X 3. Wound complication with one. History of ovarian cystectomy 04/03/2015 02/02/2017 Immunizations Immunization Administration Dates Next Due Influenza, IIV3 (Age >=3 years) 03/24/2015 Influenza, IIV4 04/07/2017,04/09/2016 Tdap 12/17/2015 Family History Medical History Relation Name Comments Good Health Brother Alcoholism Father Liver disease Father Other Father cirrhosis - ETO H () Cancer Maternal Grandfather lung Diabetes Maternal Grandmother Cancer-pancreatic Maternal Uncle Good Health Mother Cancer Paternal Grandfather lung Emphysema Paternal Grandfather Good Health Sister Thyroid Disease Sister Relation Name Status Comments Brother Alive Father Maternal Grandfather Maternal Grandmother Maternal Uncle Mother Alive Paternal Grandfather Paternal Grandmother Sister Alive Social History Tobacco Use Types Packs/Day Years Used Date Smoking Tobacco: Former Cigarettes 1 16 0 04/02/1997 - 04/02/2013 Smokeless Tobacco: Never Tobacco Cessation:Counseling Given: Yes Alcohol Use Standard Drinks/Week Comments Yes 0 (1 standard drink = 0.6 oz pur e alcohol) occ Comments No Sex and Gender Information Value Date Recorded Sex Assigned at Not on file Legal Sex Female 11:25 AM CDT Gender Identity Not on file Sexual Orientation Not on file 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 on file Not on file Not on file student Not on file Not on file Not on file Obstetrics History Para Term AB IAB SAB Ectopic Multiple Livin g Live Births 4 4 4 0 0 0 0 0 0 4 3 Date Outcome GA Total Labor Labor/2nd/3rd Weight Sex Type Anes PTL Bruna A1 A5 Name Clin 004 Term 41w 0d 3.46 kg (7 lb 10 oz) F C-Sec tion Livin g Complications: Intolera nce,Pre-eclampsia (HC) Delivery Location:[place] 012 Term 39w 0d 3.91 kg (8 lb 10 oz) M C-Sec tion Delivery Location:[place] 014 Term 39w 0d 4.14 kg (9 lb 2 oz) F C-Sec tion Livin g Complications:None Delivery Location:[place] 016 Term 37w 5d 3.49 kg (7 lb 11.1 oz) M C-Sec tion Livin g 7 8 [place] ,BB DAVID Delivery Location:[facility] Comments Pre-eclampsia with first chi ld (no magnesium) -difference partner. 2nd schedule RLTCS - no issues. 3rd told that uterine scar was thin could see face through uterus Last Filed Vital Signs Vital Sign Reading Time Taken Comments Blood Pressure 110/82 09/28/2017 9:06 AM CDT Pulse 96 09/28/2017 9:06 AM CDT Temperature 37.1 C (98.8 F) 02/01/2017 5:07 PM CDT Respiratory Rate 18 02/01/2017 5:07 PM CDT Oxygen Saturation 100% 02/01/2017 5:07 PM CDT Inhaled Oxygen Concentration - - Weight 61.7 kg (136 lb) 09/28/2017 9:06 AM CDT Height 166.4 cm (5' 5.5) 09/28/2017 9:06 AM CDT Body Mass Index 22.29 09/28/2017 9:06 AM CDT Plan of Treatment Health Maintenance Due Date Last Done Comments Hepatitis C screening for age 18-79 1999 Hepatitis B series for 19+ (1 of 3 - 19+ 3-dose series) 2000 BMI (ht and wt on same day) for age 18+ 09/28/2018 09/28/2017, 02/01/2017, 08/16/2016, Additional history exists Depression screening for age 12+ 09/28/2018 09/28/2017, 07/16/2015, 07/16/2015 COVID-19 vaccine series (2023- season) 2024 Influenza Vaccine (Season Ended) 2025 04/07/2017, 04/09/2016, 03/24/2015 Tetanus booster 12/16/2025 12/17/2015 Pap test for age 21-65 11/13/2026 , 11/14/2023, 09/28/2017, Additional history exists HIV for age 15-65 Completed 07/16/2015 Tdap Completed 12/17/2015 Pneumococcal series for age 6-49 Aged Out No longer eligible based on patient's age to complete this topic Procedures Procedure Name Priority Date/Time Associated Diagnosis Comments HPV HIGH RISK Routine 11/14/2023 7:50 AM CDT ANTI HIV 1/2 Routine 07/16/2015 11:21 AM COOLER MAN Normal first with uncertain date of LMP, antepartum, first trimester (HC) from Last 3 Months or Most Recently Relevant to Health Maintenance Results * HPV HIGH RISK (11/14/2023 7:50 AM CDT) TYPE 16 Negative Negative 11/20/2023 11:26 AM CDT [facility] TYPE 18 Negative Negative 11/20/2023 11:26 AM CDT [facility] OTHER HIGH RISK TYPES Negative Negative 11/20/2023 11:26 AM CDT [facility] Other (Cervical/Vagina l) 11/14/2023 7:50 AM CDT 11/17/2023 6:55 AM CDT Narrative [facility] - 11/20/2023 11:26 AM CDT HPV types 16, 18, 31, 33, 35, 39, 45, 51, 52, 56, 58, 59, 66 and 68 DNA were undetectable or below the pre-set threshold. Methodology: Hardy Cathi 4800 HPV Test us Mari Ortiz MD MICROBIOLOGY Final Re sult [facility] [address] [place] [address], * ANTI HIV 1/2 (07/16/2015 11:21 AM COOLER MAN) HIV-1/HIV-2 ANTIBODY Non-Reacti ve Non-Reacti ve 07/16/2015 9:23 PM COOLER MAN [facility] Blood specimen (specimen) BLOOD SPECIMEN / Unknown Venipuncture / Unknown 07/16/2015 11:21 AM COOLER MAN 07/16/2015 11:21 AM COOLER MAN Narrative [facility] - 07/16/2015 9:23 PM COOLER MAN HIV-1 p24 and HIV-1/HIV-2 Ab not detected us Sierra Robledo MD SEND OUTS Final Res ult [facility] [address] [place] [address], from Last 3 Months or Most Recently Relevant to Health Maintenance Insurance [employer] [facility] FED EMP [employer] [facility] FED EMP Advance Directives * Full Code (Latest Code Status on File) Date Activated Date Inactivated Comments 02/03/2016 8:45 AM 02/05/2016 3:53 PM * Full Code Date Activated Date Inactivated Comments 02/03/2016 7:18 AM 02/03/2016 8:45 AM Care Teams Motorcycle Delivery Driver Relationship Specialty Start Date End Date Bianka Yanes NP PCP - General Nurse Practitioner 08/20/15
--- OUTSIDE RECORDS SUMMARY | 2025-01-01 00:50 | XMS_ITS | Referral Summary ---
Author Organization [facility] Address [address] [place] [address] Care Team Providers Care Rehabilitation Aide Name Role Phone Mari Ortiz MD Primary Care Provider [phone] Encounters Date Type Department Care Team Description 12/12/2024 1:30 PM CDT Virtual Visit [address] [place] [phone] Chanda Guadalupe PA-C Migraine without aura and without status migrainosus, not intractable (Primary Dx) 10/10/2024 Community Care Management [facility] [address] [place] [address] Alfreda Kirk 10/08/2024 9:30 AM CDT Virtual Visit [address] [place] [phone] Chanda Guadalupe PA-C Migraine without aura and without status migrainosus, not intractable (Primary Dx) from Last 3 Months Allergies Active Allergy Reactions Criticality Noted Date [...] pap and colp per provider.; 03/08/2016; 08/2016 [place] (ROBINSON 1) 09/2017:Cotest NIL/HPV Negative Plan: Cotest [...] pap and colp per provider.; 03/08/2016; 08/2016 [place] (ROBINSON 1) PLAN: Cotest in 1year (DUE: 08/2017) Heartburn during 12/17/2015 History of seasonal allergies 04/03/2015 Overview (02/14/2024): allergy shots and Singulair - followed by acute specialist. Encounter for screening for cardiovascular disor ders 03/24/2015 Social History Tobacco Use Types Packs/Day Years [...] 09/18/2024 7:55 AM CDT Plan of Treatment Not on file Insurance [facility] HIGH VALUE NETWORK [facility] [employer] Care Teams Rehabilitation Aide Relationship Specialty Start Date End Date Mari Ortiz MD [address] [place] [phone] PCP - General Family Medicine 12/15/23
--- OUTSIDE RECORDS SUMMARY | 2025-01-01 00:50 | XMS_ITS | Encounter Summary ---
Author Organization [place] Address [facility] [place] [address] Care Team Providers Care Accounts Receivable Specialist Name Role Phone Bianka Yanes APRN, CNP Primary Care Provi margo Unavailable Bianka Yanes APRN, CNP Unavailable Un available Bianka Yanes APRN, CNP Unavailable Un available Encounter Details Date Type Department Care Team (Late st Contact Info) Description 05/18/2015 [facility] Medical Advice [address] [address] Alicia Cornejo MA Social History Tobacco Use Types Packs/Day Years Used Date Smoking Tobacco: Former Cigarettes Alcohol Use Standard Drinks/Week Comments Yes 0 (1 standard drink = 0.6 oz pur e alcohol) Occ. 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
== END 2024-12-31 08:10 | disposition home or self-care (01) ==
LOC: MAMMO 08:09
PROVIDERS: PCP Family Medicine; Visit Provider Family Medicine
DX: Z12.31 Encounter for screening mammogram for malignant neoplasm of breast (principal); R92.333 Mammographic heterogeneous density, bilateral breasts
CPT/HCPCS: 77063; 77067

== ENCOUNTER 2025-02-14 10:30 | Outpatient (RCR) | payer BC, SELFPAY | END 2025-06-14 23:59 | disposition home or self-care (01) | PROVIDERS: PCP Family Medicine; Visit Provider Family Medicine | DX: R20.0 Anesthesia of skin (principal); R20.2 Paresthesia of skin; Z51.89 Encounter for other specified aftercare | CPT/HCPCS: 80061; 82947; 97110; 97112; 97140; 97161 ==